=== PATIENT | female | born 1945 | race Caucasian/White ===

== ENCOUNTER 2019-02-04 11:18 | Inpatient (IN) | payer MEDICARE, OTHER ==
[~2019-02-04] VITALS: Ht 162.6 cm; Wt 80.3 kg
[2019-02-04 12:01] VITALS: BP 122/68
--- NOTE | 2019-02-04 12:07 | NUR ---
PT BACK TO ED AT THIS TIME FOLLOWING ORDERED CT SCAN, TRANSPORTED VIA STRETCHER. SIDE RAILS RAISED X2, CALL LIGHT IN REACH, WILL CONTINUE TO MONITOR.
[2019-02-04 12:21] LABS: BASOPHILS 0.6 % (0-2); EOSINOPHILS 2.8 % (0-7); HEMATOCRIT 39.5 % (36.0-48.0); HEMOGLOBIN 12.8 g/dL (12-16); IMMATURE GRANULOCYTES 0.3 % (0-5); LYMPHOCYTES 34.2 % (15-50); MCH 32.6 pg (26.0-34.0); MCHC 32.4 g/dL (31.0-37.0); MCV 100.5 fL (80.0-100.0); MEAN PLATELET VOLUME 10.1 fL (7.4-10.4); MONOCYTES 5.5 % (2-11); NEUTROPHILS 56.6 % (40-80); PLATELET COUNT 219 10x3/uL (130-400); RBC 3.93 10x6/uL (4.00-5.40); WBC 6.9 10x3/uL (4.8-10.8)
[2019-02-04 12:31] LABS: APTT 32.3 SECONDS (22.8-39.4); INR 1.08 (0.85-1.17); PROTIME 13.5 SECONDS (11.6-15.0)
[2019-02-04 12:36] LABS: ALBUMIN 3.8 g/dL (3.4-5.0); ALKALINE PHOSPHATASE 80 U/L (46-116); ALT (SGPT) 9 U/L (10-68); BILIRUBIN - TOTAL 0.27 mg/dL (0.2-1.3); CALC OSMOLALITY 284 mosm/kg (275-300); CALCIUM 8.7 mg/dL (8.5-10.1); CARBON DIOXIDE 28.7 mmol/L (21.0-32.0); CHLORIDE - SERUM 103 mmol/L (98-107); CREATININE - SERUM 0.8 mg/dL (0.6-1.3); GLUCOSE 112 mg/dL (74-106); POTASSIUM - SERUM 3.7 mmol/L (3.5-5.1); PROTEIN - SERUM 7.3 g/dL (6.4-8.2); SODIUM 141 mmol/L (136-145); UREA NITROGEN 22 mg/dL (7-18); eGFR NON AFRICAN AMERICAN 75 mL/min (90-120)
--- NOTE | 2019-02-04 12:45 | NUR ---
PT CONTINUES TO HAVE PARALYSIS TO RUE AND RLE. NO NEURO CHANGES SINCE FIRST ARRIVAL TO ED. NO SIGNS OF DISTRESS. RESIRATIONS EVEN AND UNLABORED. REPOSITIONED FOR COMFORT. CALL LIGHT IN REACH ON UNAFFECTED SIDE. ER REGISTRATION STAFF MEMBER, ALONG WITH THIS NURSE EXPLAINED TO PT THAT WE NEEDE TO LOOK INSIDE OF HER PURSE FOR INFORMATION. PT NODDED HER HEAD TO INSINUATE UNDERSTANDING. DISCOVERED PAPER INDICATING PT'S PCP. WILL CONTACT [facility] IN ATTEMPT TO GATHER PT INFORMATION.
[2019-02-04 12:49] LABS: CKMB 0.9 U/L (0.0-3.6); CREATINE KINASE 106 UL (21-215); MAGNESIUM - SERUM 2.1 mg/dL (1.8-2.4); THYROID STIMULATING HORMONE 4.24 uIU/mL (0.36-3.74); TROPONIN-I < 0.017 ng/mL (0.000-0.060)
[2019-02-04 13:01] VITALS: BP 120/46
--- NOTE | 2019-02-04 13:31 | NUR ---
SPOKE WITH STAFF MEMBER FROM PT'S PCP CLINIC. REPORTED THAT PT'S PCP IS DR. MORALES. REQUESTED THAT MEDICAL RECORDS BE FAXED TO ED.
[2019-02-04 14:00] VITALS: BP 126/64
[2019-02-04 14:23] LABS: APPEARANCE HAZY (CLEAR); BILIRUBIN NEGATIVE (NEGATIVE); COLOR YELLOW (YELLOW); GLUCOSE NEGATIVE (NEGATIVE); KETONE NEGATIVE (NEGATIVE); NITRITE NEGATIVE (NEGATIVE); PROTEIN NEGATIVE (NEGATIVE); SPECIFIC GRAVITY 1.015 (1.005-1.020); UROBILINOGEN NORMAL (NORMAL)
[2019-02-04 15:42] VITALS: BMI 30.4
--- NOTE | 2019-02-04 15:42 | MORECARE ---
CASE MANAGEMENT DISCHARGE SUMMARY PATIENT: DONNA SIMONS UNIT: [id number] ADM DATE: 02/04/19 AGE: 73 : 46 SEX: F ROOM/BED: D.2225 AUTHOR: CAMRYN ZAMORANO PHYSICIAN: REFERRING PHYSICIAN: ZI AMARO MD DATE OF SERVICE: 02/04/19 Discharge Plan Patient Name: DONNA SIMONS [facility] [facility] 1945 Planned Disposition: Anticipated Discharge Date: Discharge Date: Expected LOS: Initial Reviewer: [email or web address] Initial Review Date: 02/04/2019 Generated: 02/04/19 4:42 pm DCP- Discharge Planning Updated by [id number]: Rosaline Velázquez on 02/04/19 2:[address] DC PLAN: UNSURE AT THIS TIME. DC NEEDS: REHAB CM attempted to complete initial dc planning assessment. Patient was found on the floor at home by her . Her last well known time was 2199. Patient not able to verbally communicate but is able to to shake her head yes/no. She is from home wthi her but he is not here and did not answer the numbers listed on the facesheet cm called. CM will continue to follow and will assist as needed with dc plans/needs. Rosaline Velázquez RN, [facility] Patient Name: DONNA SIMONS Page [id number] at 1542 All edits/amendments must be made on the electronic document DICTATION DATE: 02/04/19 1542 MEDICAL RECORDS ASSISTANT: JESSIKA 02/04/19 1542 RPT#: [id number] DC DATE: STATUS: ADM IN [facility] [address] [place] [address] END OF REPORT
[2019-02-04] MEDS ORDERED: BAYER CHEWABLE81 MG PO (15:52)
[2019-02-04] MEDS ORDERED: LIPITOR10 MG (15:53)
[2019-02-04] MEDS ORDERED: SINEMET CR 50-1 EACH (15:54)
[2019-02-04] MEDS ORDERED: LASIX40 MG PO (15:55)
[2019-02-04] MEDS ORDERED: CENTRUM SILVER1 EAC3 (15:55)
[2019-02-04] MEDS ORDERED: CO Q-10200 MG PO (15:55)
[2019-02-04] MEDS ORDERED: MOBIC7.5 MG PO (15:56)
[2019-02-04] MEDS ORDERED: PROVIGIL200 MG PO (15:56)
[2019-02-04] MEDS ORDERED: OSTEO BI-FLEX1 EAC1 PO (15:57)
[2019-02-04] MEDS ORDERED: NYSTATIN1 PWD TOPICAL (15:57)
[2019-02-04] MEDS ORDERED: OMEGA-3100 MG PO (15:57)
[2019-02-04] MEDS ORDERED: POTASSIUM99 M1 PO (15:58)
[2019-02-04] MEDS ORDERED: MYSOLINE250 MG PO (15:59)
[2019-02-04] MEDS ORDERED: MYSOLINE 50 MG50 MG PO (15:59)
[2019-02-04] MEDS ORDERED: PROPRANOLOL HCL20 MG PO (15:59)
[2019-02-04] MEDS ORDERED: ZANAFLEX2 M1 PO (16:00)
[2019-02-04] MEDS ORDERED: SYNTHROID50 MCG PO (16:00)
[2019-02-04] MEDS ORDERED: TOPAMAX50 MG PO ×2 (16:01)
[2019-02-04] MEDS ORDERED: TOPAMAX100 MG PO (16:01)
[2019-02-04] MEDS ORDERED: EFFEXOR75 MG PO (16:02)
[2019-02-04] MEDS ORDERED: ULTRAM50 MG PO (16:02)
[2019-02-04] MEDS ORDERED: VITAMIN B-6100 MG PO (16:03)
[2019-02-04] MEDS ORDERED: VITAMIN B-122500 MCG PO (16:03)
[2019-02-04] MEDS ORDERED: ASCORBIC ACID500 MG PO (16:04)
[2019-02-04 16:10] LABS: CHOL - HDL RATIO 3.9 ratio (2.3-4.1); LDL-HDL RATIO 2.4 ratio (1.5-3.5)
[2019-02-04 17:07] VITALS: BP 153/69
[2019-02-04 18:50] LABS: CKMB 0.9 U/L (0.0-3.6); CREATINE KINASE 143 UL (21-215)
--- NOTE | 2019-02-04 19:00 | NUR ---
BEDSIDE REPORT RECEIVED AND CARE OF PT ASSUMED. PT LYING IN SUPINE POSITION WITH EYES CLOSED. ATTEMPTED TO SPEAK...GOT OUT NO WHEN ASKED IF SHE WAS IN PAIN. RIGHT SIDE FLACCID WITH RIGHT FACIAL DROOP. O2 IN USE VIA NC AT 2L. WILL MONITOR FOR NEEDS.
[2019-02-04 20:00] VITALS: BP 134/71
--- NOTE | 2019-02-04 20:30 | NUR ---
PT TURNED ONTO LEFT SIDE PROPPED WITH PILLOWS.
[2019-02-05 04:00] VITALS: BP 130/65
[2019-02-05 06:07] LABS: BASOPHILS 0.3 % (0-2); EOSINOPHILS 1.4 % (0-7); HEMATOCRIT 40.3 % (36.0-48.0); HEMOGLOBIN 13.1 g/dL (12-16); IMMATURE GRANULOCYTES 0.2 % (0-5); LYMPHOCYTES 25.4 % (15-50); MCH 32.8 pg (26.0-34.0); MCHC 32.5 g/dL (31.0-37.0); MCV 100.8 fL (80.0-100.0); MEAN PLATELET VOLUME 10.8 fL (7.4-10.4); MONOCYTES 6.6 % (2-11); NEUTROPHILS 66.1 % (40-80); PLATELET COUNT 226 10x3/uL (130-400); RDW 13.2 % (11.5-14.5)
[2019-02-05 06:17] LABS: WBC 11.7 10x3/uL (4.8-10.8)
[2019-02-05 06:36] LABS: CALC OSMOLALITY 282 mosm/kg (275-300); CALCIUM 8.8 mg/dL (8.5-10.1); CARBON DIOXIDE 26.9 mmol/L (21.0-32.0); CHLORIDE - SERUM 105 mmol/L (98-107); CREATININE - SERUM 0.7 mg/dL (0.6-1.3); GLUCOSE 124 mg/dL (74-106); POTASSIUM - SERUM 3.7 mmol/L (3.5-5.1); SODIUM 141 mmol/L (136-145); eGFR NON AFRICAN AMERICAN 87 mL/min (90-120)
[2019-02-05 06:38] LABS: UREA NITROGEN 15 mg/dL (7-18)
--- NOTE | 2019-02-05 09:39 | NUR ---
ALERT WITH EXPRESSIVE APHASIA NOTED. FLACIDITY NOTED TO RUE AND RLE. WITH CAP REFULL <3. BED ALARM INTACT. IVF INFUSING TO LT. HAND AT PRESCRIBED RATE4 WITH NO S/S OF INFECTION/INFILTRATION. CONTINUED ASSIST WITH MEALS AND PUREED WITH HONEY THICK LIQUIDS.
[2019-02-05 09:47] VITALS: BP 127/61
[2019-02-05 13:06] VITALS: Ht 162.6 cm; Wt 80.3 kg
[2019-02-05 13:39] VITALS: BP 148/73
[2019-02-05 17:00] VITALS: BP 145/69
--- NOTE | 2019-02-05 19:00 | NUR ---
BEDSIDE REPORT RECEIVED AND CARE OF PT ASSUMED. PT LYING IN HIGH BRIDGES'S POSITION. IV TO LEFT HAND PATENT WITH D5LR INFUSING AT 70 ML/HR. TELEMETRY IN PLACE AND READING SR AT THIS ASSESSMENT.
--- NOTE | 2019-02-05 20:05 | NUR ---
HS MEDICATIONS GIVEN. WILL CONTINUE TO MONITOR FOR NEEDS.
[2019-02-05 20:45] VITALS: BP 149/82
--- NOTE | 2019-02-05 22:00 | NUR ---
ASSISTED PT TO USE BEDPAN TO VOID AND HAVE BM. CLEANED PERINEAL AREA AND REPLACED BEDPADS.
--- NOTE | 2019-02-05 22:08 | NUR ---
PT TURNED TO RIGHT SIDE, PROPPED WITH PILLOWS. SCD'S IN PLACE ON BLE.
--- NOTE | 2019-02-06 00:15 | NUR ---
PT ASSISTED TO USE BEDPAN TO VOID. POSITIONED FOR COMFORT.
--- NOTE | 2019-02-06 00:30 | NUR ---
PT TURNED TO SUPINE POSITION WITH PILLOW SUPPORT ON BOTH SIDES FOR ARMS. HOB AT [address] ON BLE. CALL LIGHT WITHIN REACH.
[2019-02-06 00:46] VITALS: BP 149/76
--- NOTE | 2019-02-06 03:30 | NUR ---
PT CHANGED DUE TO INCONTINECE OF BOWEL AND BLADDER. BED PADS AND GOWN CHANGED. PT TURNED TO LEFT SIDE PER TURN SCHEDULE.
--- NOTE | 2019-02-06 04:10 | NUR ---
PT VOMITED 200 ML OF UNDIGESTED PUREED FOOD. PT CLEANED UP AND ALL LINENS AND GOWN CHANGED.
--- NOTE | 2019-02-06 04:26 | NUR ---
GAVE ZOFRAN 4 MG IVP FOR VOMITING. WILL CONTINUE TO MONITOR CLOSELY FOR NEEDS.
[2019-02-06 05:10] VITALS: BP 156/73
[2019-02-06 06:20] LABS: BASOPHILS 0.2 % (0-2); EOSINOPHILS 0.1 % (0-7); HEMATOCRIT 40.1 % (36.0-48.0); HEMOGLOBIN 13.1 g/dL (12-16); IMMATURE GRANULOCYTES 0.2 % (0-5); LYMPHOCYTES 19.6 % (15-50); MCH 32.8 pg (26.0-34.0); MCHC 32.7 g/dL (31.0-37.0); MCV 100.5 fL (80.0-100.0); MEAN PLATELET VOLUME 10.7 fL (7.4-10.4); MONOCYTES 6.9 % (2-11); PLATELET COUNT 229 10x3/uL (130-400); RBC 3.99 10x6/uL (4.00-5.40); RDW 13.1 % (11.5-14.5); WBC 10.7 10x3/uL (4.8-10.8)
[2019-02-06 06:32] LABS: CALC OSMOLALITY 283 mosm/kg (275-300); CALCIUM 8.8 mg/dL (8.5-10.1); CARBON DIOXIDE 25.7 mmol/L (21.0-32.0); CHLORIDE - SERUM 105 mmol/L (98-107); CREATININE - SERUM 0.6 mg/dL (0.6-1.3); GLUCOSE 146 mg/dL (74-106); SODIUM 141 mmol/L (136-145); UREA NITROGEN 13 mg/dL (7-18); eGFR NON AFRICAN AMERICAN > 90 mL/min (90-120)
--- NOTE | 2019-02-06 09:30 | NUR ---
PT AWAKE WITH IMPROVED EXPRESSIVE APASHIA AND COGNITION. PT ABLE TO SPEAK 2-3 WORD PHRASES. LUNGS CTA HRRR WITH TELEMETRY INTACT. INCONTINENT EPISODES AT TIMES. TELEMETRY INTACT. IVF INFUSING AT PRESCRIBED RATE TO LEFT HAND. PT. TRUNED AND REPOSITIONED FOR COMFORT Q 2 HRS.
[2019-02-06 09:36] VITALS: BP 134/61
[2019-02-06 12:34] VITALS: BP 145/75
--- NOTE | 2019-02-06 19:00 | NUR ---
BEDSIDE REPORT RECEIVED AND CARE OF PT ASSUMED. PT LYING IN LOW BRIDGES'S POSITION WITH EYES CLOSED. HEELS BRIDGED. PUREWICK EXTERNAL CATHETER IN USE. RIGHT SIDE REMAINS FLACID. APASIA IMPROVING, WITH PT RESPONDING MORE CLEARLY. WILL MONITOR FOR NEEDS.
[2019-02-06 20:56] VITALS: BP 138/70
[2019-02-07 01:48] VITALS: BP 141/70
[2019-02-07 05:24] VITALS: BP 130/71
[2019-02-07 05:43] LABS: BASOPHILS 0.3 % (0-2); EOSINOPHILS 0.7 % (0-7); HEMATOCRIT 39.8 % (36.0-48.0); HEMOGLOBIN 12.8 g/dL (12-16); IMMATURE GRANULOCYTES 0.2 % (0-5); LYMPHOCYTES 24.5 % (15-50); MCH 32.7 pg (26.0-34.0); MCHC 32.2 g/dL (31.0-37.0); MCV 101.5 fL (80.0-100.0); MEAN PLATELET VOLUME 10.7 fL (7.4-10.4); MONOCYTES 9.2 % (2-11); NEUTROPHILS 65.1 % (40-80); PLATELET COUNT 227 10x3/uL (130-400); RBC 3.92 10x6/uL (4.00-5.40); RDW 13.4 % (11.5-14.5); WBC 11.8 10x3/uL (4.8-10.8)
[2019-02-07 06:02] LABS: CALC OSMOLALITY 293 mosm/kg (275-300); CALCIUM 8.2 mg/dL (8.5-10.1); CARBON DIOXIDE 29.7 mmol/L (21.0-32.0); CHLORIDE - SERUM 109 mmol/L (98-107); CREATININE - SERUM 0.6 mg/dL (0.6-1.3); GLUCOSE 128 mg/dL (74-106); POTASSIUM - SERUM 3.8 mmol/L (3.5-5.1); SODIUM 146 mmol/L (136-145); UREA NITROGEN 14 mg/dL (7-18); eGFR NON AFRICAN AMERICAN > 90 mL/min (90-120)
--- NOTE | 2019-02-07 09:22 | NUR ---
FED PT BREAKFAST AND PT TOLERATED WELL, NO S/S OF DISTRESS, CONTINUE WITH PLAN OF CARE
--- NOTE | 2019-02-07 12:00 | NUR ---
PT IS WITHOUT DISTRESS.CALL LIGHT IN REACH
--- NOTE | 2019-02-07 14:34 | EC ---
PATIENT:DONNA SIMONS DATE OF SERVICE: 02/04/19 SEX: F MEDICAL RECORD: [id number] DATE OF : [birth year] LOCATION:D.MS [address] AGE OF PATIENT: 73 ADMISSION DATE: 02/04/19 REFERRING PHYSICIAN: INTERPRETING PHYSICIAN: KARLY ANDREA MD ECHOCARDIOGRAM REPORT ECHO CHARGES 4 ECHO COMPLETE Date: 02/05/19 CLINICAL DIAGNOSIS: CVA ECHOCARDIOGRAPHIC MEASUREMENTS (adult normal given) AC root (d.<3.7cm) 3.6 cm LV Septum d (<1.2 cm> 1.2 cm Valve Excursion 2.2 cm LV Septum (systole) 1.6 cm Left Atria (s.<4.0cm> 3.9 cm LVPW d(<1.2cm) 1.4 cm RV (d.<2.3cm) 3.6 cm LVPW (sytole) 1.6 cm LV diastole(<5.6CM) 4.7 cm MV E-F(>70mm/sec) cm LV systole 2.8 cm LVOT Diameter 1.9 cm MV exc.(>10mm) 1.4 cm Est.ejection fraction (50-75%) % DOPPLER: LVIT cm/sec A 84.0 cm/sec E 53.0 cm/sec LA cm/sec RVSP 17 mmHg LVOT 85 cm/sec AOP1/2T m/s Asc. Ao 105 cm/sec RVOT 75 cm/sec RA cm/sec PA 104 cm/sec AV Gradient Peak 4.42 mmHg AV Mean 2.09 mmHg AV Area 2.6 cm MV Gradient Peak 3.68 mmHg MV Mean 1.17 mmHg MV Area cm COMMENTS: Reconnaissance Man: Elvin TOMAS Mail Room: Leonel Andrea TAPE# PACS Pericardial Effusion N DATE OF SERVICE: 02/05/2019 PROCEDURE: Echocardiogram. FINDINGS: 1. Left ventricular chamber size is within normal limits. Left ventricular systolic function is normal. Overall ejection fraction estimated at 60% to 65%. 2. Left atrium is within normal limits at 3.9 cm. Right atrium and right ventricular chamber sizes are mildly dilated. 3. Valvular structures have normal structure and motion. ECHOCARDIOGRAM REPORT [id number] DONNA SIMONS 4. Doppler interrogation reveals etknu-go-udnb aortic insufficiency, fqyrv-xl-jvyr mitral regurgitation, pgttr-tv-csfo tricuspid regurgitation, no other valvular insufficiency or stenosis. Pulmonary systolic pressure is normal estimated at 17 mmHg. 5. No evidence of pericardial effusion or left ventricular thrombus. TRANSINT:[id number] Voice Confirmation ID: [id number] DOCUMENT ID: [id number] KARLY ANDREA MD at 1434 CC: [id number] DICTATION DATE: 02/06/19 1240 [place] FORMER: 02/06/19 1259 [place] [address]
--- NOTE | 2019-02-07 15:34 | MORECARE ---
CASE MANAGEMENT DISCHARGE SUMMARY PATIENT: DONNA SIMONS UNIT: [id number] ADM DATE: 02/04/19 AGE: 73 : [birth year] SEX: F ROOM/BED: D.2225 AUTHOR: CAMRYN ZAMORANO PHYSICIAN: REFERRING PHYSICIAN: ZI AMARO MD DATE OF SERVICE: 02/07/19 Discharge Plan Patient Name: DONNA SIMONS Facility: [facility]:[place] : 1945 Planned Disposition: Anticipated Discharge Date: Discharge Date: Expected LOS: Initial Reviewer: [email or web address] Initial Review Date: 02/04/2019 Generated: 02/07/19 4:34 pm Comments DCP- Discharge Planning Updated by [id number]: Tori Schmidt on 02/07/19 2:[address] I called [phone] and [phone] to reach patient's without success, I did leave my name and number to return my call concerning discharge I attempted to call Radha or Neri as listed on her admin data screen with no answer. I will continue to assist with discharge planning/needs and try again to reach her via phone. DCP- Discharge Planning Updated by [id number]: Rosaline Velázquez on 02/04/19 2:[address] DC PLAN: UNSURE AT THIS TIME. DC NEEDS: REHAB CM attempted to complete initial dc planning assessment. Patient was found on the floor at home by her . Her last well known time was 2200. Patient not able to verbally communicate but is able to to shake her head yes/no. She is from home wthi her but he is not here and did not answer the numbers listed on the facesheet cm called. CM will continue to follow and will assist as needed with dc plans/needs. Rosaline Velázquez RN, [facility] Last DP export: 02/04/19 2:42 p Patient Name: DONNA SIMONS Page [id number] at 1534 All edits/amendments must be made on the electronic document DICTATION DATE: 02/07/19 1533 ADVERTISING SALES EXECUTIVE: JESSIKA 02/07/19 153 RPT#: [id number] DC DATE: STATUS: ADM IN [facility] [address] [place] [address] END OF REPORT
[2019-02-07 15:55] VITALS: BP 177/76
--- NOTE | 2019-02-07 20:00 | NUR ---
ASSESSMENT PER FLOWSHEET. UPON ROUNDS WITH AM NURSE IT WAS NOTED THAT PATIENT WAS INC. OF STOOL AND ALSO HAD STOOL ON HER HANDS. NURSE STATED CNAS HAD JUST CLEANED HER UP. DAUGHTER CAME INTO ROOM AND PM [employer] IC LAYOUT DESIGNER WAS CLEANING HER UP. SR UP X2 CALL LIGHT WITHIN REACH. GABRIELA MAT TO BED.
--- NOTE | 2019-02-07 20:30 | NUR ---
IV PATENT LEFT HAND OF D5LR AT 70CC'S/HR SITE CLEAR. O2 ON 3L/M PER NC. RT SIDE FLACCID. LEFT FACIAL WEAKNESS. TELM. SHOWS SR WITH HR 67. SCD'S ON. SPEECH SLURRED.
--- NOTE | 2019-02-07 22:00 | NUR ---
EYES CLOSED ESPIRATIONS WITH EASE AND UNLABORED.
[2019-02-07 22:28] VITALS: BP 135/70
[2019-02-08] VITALS: BP 139/64
--- NOTE | 2019-02-08 01:22 | NUR ---
RESTING QUIETLY NO CHAGES IN ASSESSMENT. REPOSITIONED IN BED.
[2019-02-08 06:07] LABS: BASOPHILS 0.3 % (0-2); EOSINOPHILS 3.1 % (0-7); HEMATOCRIT 39.6 % (36.0-48.0); HEMOGLOBIN 12.8 g/dL (12-16); IMMATURE GRANULOCYTES 0.2 % (0-5); MCH 32.9 pg (26.0-34.0); MCHC 32.3 g/dL (31.0-37.0); MCV 101.8 fL (80.0-100.0); MEAN PLATELET VOLUME 10.5 fL (7.4-10.4); MONOCYTES 9.2 % (2-11); NEUTROPHILS 62.2 % (40-80); PLATELET COUNT 215 10x3/uL (130-400); RBC 3.89 10x6/uL (4.00-5.40); RDW 13.4 % (11.5-14.5); WBC 10.3 10x3/uL (4.8-10.8)
[2019-02-08 06:13] VITALS: BP 122/82
[2019-02-08 06:20] LABS: CALC OSMOLALITY 291 mosm/kg (275-300); CALCIUM 8.9 mg/dL (8.5-10.1); CARBON DIOXIDE 30.6 mmol/L (21.0-32.0); CHLORIDE - SERUM 106 mmol/L (98-107); CREATININE - SERUM 0.5 mg/dL (0.6-1.3); GLUCOSE 117 mg/dL (74-106); POTASSIUM - SERUM 3.6 mmol/L (3.5-5.1); SODIUM 145 mmol/L (136-145); UREA NITROGEN 17 mg/dL (7-18); eGFR NON AFRICAN AMERICAN > 90 mL/min (90-120)
[2019-02-08 08:47] VITALS: BP 120/62
--- NOTE | 2019-02-08 11:19 | NUR ---
PATIENT RECIEVED THIS AM WITH EYES CLOSED IN SNORING SLEEP. WAS ABLE TO AWAKEN ENOUGH TO EAT SMALL AMOUNT OF BREAKFAST. PATIENT IS DIFFICULT TO AROUSE AT THIS TIME. ELLIE BROWN SUPERVISOR FEED MILL IN ROOM AT THIS TIME
[2019-02-08 12:36] VITALS: BP 123/62
--- NOTE | 2019-02-08 13:14 | MORECARE ---
CASE MANAGEMENT DISCHARGE SUMMARY PATIENT: DONNA SIMONS UNIT: [id number] ADM DATE: 02/04/19 AGE: 73 : 47 SEX: F ROOM/BED: D.2225 AUTHOR: LONADOC PHYSICIAN: REFERRING PHYSICIAN: ZI AMARO MD DATE OF SERVICE: 02/08/19 Discharge Plan Patient Name: DONNA SIMONS Facility: [facility]:[place] : 1945 Planned Disposition: Inpatient Rehab Anticipated Discharge Date: Discharge Date: Expected LOS: Initial Reviewer: [email or web address] Initial Review Date: 02/04/2019 Generated: 02/08/19 2:14 pm Comments DCP- Discharge Planning Updated by [email or web address]: Tori Schmidt on 02/08/19 12:[address] I was able to get ahold of patient's daughter (Elise), her number is [phone]. She states that she would like her mother to go to inpatient rehab prior to returning home. I informed her that she is unstable at this time and the physician would like to know her code status. Elise states that they have talked about it before, and would like her mother to be a full code. She states she wants everything done. She states she can be here after work today. Elise states her mother was independent prior to admission and caring for her . States her mother still is working at the [employer]. CM will continue to follow and assist with discharge planning/needs. DCP- Discharge Planning Updated by [email or web address]: Tori Schmidt on 02/07/19 2:[address] I called [phone] and [phone] to reach patient's without success, I did leave my name and number to return my call concerning discharge I attempted to call Radha or Neri as listed on her admin data screen with no answer. I will continue to assist with discharge planning/needs and try again to reach her via phone. DCP- Discharge Planning Updated by [email or web address]: Rosaline Velázquez on 02/04/19 2:[address] DC PLAN: UNSURE AT THIS TIME. DC NEEDS: REHAB CM attempted to complete initial dc planning assessment. Patient was found on the floor at home by her . Her last well known time was 2200. Patient not able to verbally communicate but is able to to shake her head yes/no. She is from home wthi her but he is not here and did not answer the numbers listed on the facesheet cm called. CM will continue to follow and will assist as needed with dc plans/needs. Rosaline Velázquez RN, [facility] Last DP export: 02/07/19 2:34 p Patient Name: DONNA SIMONS Page [id number] at 1314 All edits/amendments must be made on the electronic document DICTATION DATE: 02/08/19 131 BONDING MACHINE TENDER: JESSIKA 02/08/19 1314 RPT#: [id number] DC DATE: STATUS: ADM IN [facility] [address] [place] [address] END OF REPORT
--- NOTE | 2019-02-08 15:23 | NUR ---
OT NOTE: IN AM, PT VERY LETHARGIC.. MUCH LESS RESPONSIVE THAN YESTERDAY. PT WOULD INITIALLY OPEN EYES WITH VERBAL STIMULI, BUT IMMEDIATELY CLOSED THEM. UNABLE TO STAY AWAKE. INITIALLY UNABLE TO TURN HEAD IN RESPONSE TO VERBAL STIM, BUT LATER ABLE TO DO SO. UNABLE TO STAY AWAKE TO BE FED. INFORMED MATIAS WHO ORDERED SOME TESTS TO BE PERFORMED. PT WAS SEEN IN PM AND WAS DOING MUCH BETTER. COMPLETELY ALERT AND AWAKE. SHE WAS VERBALIZING THIS AFTERNOON.. (SPEECH WAS NOT GARBLED THIS AFTERNOON) PT WAS ASKED HER NAME AND RESPONDED WITH, " I DONT KNOW".. PT WAS ABLE TO PERFORM SIMPLE COMMANDS BUT WITH VERY UNCOORDINATED MOVEMENT IN L SIDE. ABLE TO COUNT TO 5.. MUCH IMPROVED FROM THIS MORNING AND YESTERDAY. KACIE CASTILLO, OTR/L
[2019-02-08 16:33] VITALS: BP 106/49
--- NOTE | 2019-02-08 20:00 | NUR ---
ASSESSMENT PER FLOWSHEET. IV PATENT RT WRIST WITH D5LR AT 70CC'S/HR. GABRIELA MAT TO BED SR UP X2 CALL LIGHT WITHIN REACH.PURLEX DEVICE TO URETHRA. BRENT COLORED URINE NOTIED IN CANNISTER.
--- NOTE | 2019-02-08 20:15 | NUR ---
TO MRI DEPT PER CART FOR MRI OF THE BRAIN.
--- NOTE | 2019-02-08 20:45 | NUR ---
RETURNED TO ROOM
--- NOTE | 2019-02-08 22:00 | NUR ---
INC URINE COMPLETE BED BATH WITH LINENS CHANGED.
[2019-02-08 22:21] VITALS: BP 134/59
--- NOTE | 2019-02-09 | NUR ---
EYES CLOSED RESPIRAQTIONS WITH EASE AND UNLABORED. O2 ON 3L/M PER NC.
[2019-02-09 01:02] VITALS: BP 108/58; BP 141/66
[2019-02-09 04:58] VITALS: BP 134/60
[2019-02-09 06:43] LABS: BASOPHILS 0.3 % (0-2); EOSINOPHILS 4.2 % (0-7); HEMOGLOBIN 12.2 g/dL (12-16); IMMATURE GRANULOCYTES 0.1 % (0-5); MCH 32.4 pg (26.0-34.0); MCHC 32.1 g/dL (31.0-37.0); MCV 101.1 fL (80.0-100.0); MEAN PLATELET VOLUME 10.5 fL (7.4-10.4); MONOCYTES 6.9 % (2-11); NEUTROPHILS 66.5 % (40-80); PLATELET COUNT 208 10x3/uL (130-400); RBC 3.76 10x6/uL (4.00-5.40); RDW 13.1 % (11.5-14.5); WBC 11.1 10x3/uL (4.8-10.8)
[2019-02-09 06:45] LABS: CALC OSMOLALITY 288 mosm/kg (275-300); CALCIUM 8.6 mg/dL (8.5-10.1); CARBON DIOXIDE 29.6 mmol/L (21.0-32.0); CHLORIDE - SERUM 107 mmol/L (98-107); CREATININE - SERUM 0.6 mg/dL (0.6-1.3); GLUCOSE 118 mg/dL (74-106); POTASSIUM - SERUM 3.5 mmol/L (3.5-5.1); SODIUM 144 mmol/L (136-145); UREA NITROGEN 16 mg/dL (7-18); eGFR NON AFRICAN AMERICAN > 90 mL/min (90-120)
[2019-02-09 09:03] VITALS: BP 130/63
--- NOTE | 2019-02-09 11:30 | NUR ---
PT RESTING IN BED. NO SIGNS OF DISTRESS. IV TO RIGHT WRIST PATENT NO REDNESS OR TENDERNESS. PERWICK IN PLACE. ALL FALL PRECAUTIONS IN PLACE. DENIES ANY FURTHER NEED AT THIS TIME. CALL LIGHT IN REACH. BED LOW POSITION. NO FAMILY AT BEDSIDE AT THIS TIME.
[2019-02-09 12:56] VITALS: BP 125/64
--- NOTE | 2019-02-09 14:20 | NUR ---
Nutrition Follow-up: No family at BS. Pt's nurse reports that pt eats ~50% of meal and then starts coughing; coughing not noted any other time. Being seen by ST who continue to rec puree with honey thick liquid with 1:1 feedings. Diet: Regular, Puree with Honey Thick Liquids No new wt Last BM: 02/08 Labs reviewed Meds reviewed -Continue current diet with consistencies per ST. -Trial Ensure; will send with dinner daniel. -RD following.
--- NOTE | 2019-02-09 15:53 | NUR ---
OT NOTE: PT LETHARGIC AGAIN IN AM, HOWEVER, MORE EASILY AROUSABLE TODAY. PRACTICED BED MOB AND PT PERFORMED VERY WELL WITH ROLLING, EVEN TO WEAK SIDE. SUPINE TO SIT WITH MAX ASSIST. MOD ASSIST WITH STATIC SITTING BALANCE. ATTEMPTED COGNITIVE ACT INCLUDING STATING NAME, FAMILY NAME, ETC.. ALL RESPONSES WERE, "I DONT KNOW". ABLE TO COUNT TO 5 WITH THERAPIST, BUT THEN VERBALIZATION BECAME MORE GARBLED. DIFFICULTY WITH IDENTIFYING COLORS. R SIDE REMAINS FLACID. KACIE CASTILLO, OTR/L
[2019-02-09 16:33] VITALS: BP 116/62
--- NOTE | 2019-02-09 17:37 | NUR ---
OT NOTE: PT COMPLETED SIDE ROLLING TASK WITH MIN A. PT COMPLETED SUPINE TO SIT WITH MAX A. PT COMPLETED FACE WASH AND HAND WASH WITH MIN/MOD A. PT LETHARGIC AND REQUIRED CUES FOR PARTICIPATION. PT IS COOPERATIVE. THANK YOU, NANCI LOVE
--- NOTE | 2019-02-09 18:40 | NUR ---
I have reviewed this patient and I concur with the Shift Assessment completed by the Licensed Practical Nurse today this shift.
[2019-02-09 20:00] VITALS: BP 159/60
[2019-02-10] VITALS: BP 130/63
[2019-02-10 04:00] VITALS: BP 128/59
[2019-02-10 06:05] LABS: BASOPHILS 0.5 % (0-2); HEMATOCRIT 36.6 % (36.0-48.0); HEMOGLOBIN 11.6 g/dL (12-16); IMMATURE GRANULOCYTES 0.1 % (0-5); LYMPHOCYTES 31.5 % (15-50); MCH 32.3 pg (26.0-34.0); MCHC 31.7 g/dL (31.0-37.0); MCV 101.9 fL (80.0-100.0); MEAN PLATELET VOLUME 10.5 fL (7.4-10.4); MONOCYTES 9.8 % (2-11); NEUTROPHILS 52.1 % (40-80); PLATELET COUNT 214 10x3/uL (130-400); RBC 3.59 10x6/uL (4.00-5.40); RDW 13.1 % (11.5-14.5)
[2019-02-10 06:29] LABS: WBC 7.5 10x3/uL (4.8-10.8)
[2019-02-10 06:34] LABS: ALKALINE PHOSPHATASE 100 U/L (46-116); ALT (SGPT) 126 U/L (10-68); BILIRUBIN - TOTAL 0.35 mg/dL (0.2-1.3); CALC OSMOLALITY 296 mosm/kg (275-300); CALCIUM 8.7 mg/dL (8.5-10.1); CARBON DIOXIDE 30.6 mmol/L (21.0-32.0); CHLORIDE - SERUM 109 mmol/L (98-107); CREATININE - SERUM 0.5 mg/dL (0.6-1.3); GLUCOSE 109 mg/dL (74-106); POTASSIUM - SERUM 3.7 mmol/L (3.5-5.1); PROTEIN - SERUM 6.1 g/dL (6.4-8.2); SODIUM 148 mmol/L (136-145); UREA NITROGEN 17 mg/dL (7-18); eGFR NON AFRICAN AMERICAN > 90 mL/min (90-120)
--- NOTE | 2019-02-10 07:20 | NUR ---
CONFUSED AT TIMES, SPEECH SLURRED. RESTING IN BED EYES OPEN. NO C/O PAIN. NO S/S OF ACUTE DISTRESS NOTED. RIGHT ARM FLACCID, RIGHT LEG MODERATE WEAKNESS. BED ALARM ON. ON 2L O2, NC. IV TO RIGHT WRIST, D5 1/2 NS INFUSING @ 125ML/HR. SITE PATENT WITHOUT REDNESS OR SWELLING. ON TELEMETRY SR 70. PT DENIES ANY NEEDS AT THIS TIME. CALL LIGHT IN REACH. WILL CONTINUE TO MONITOR.
[2019-02-10 09:13] VITALS: BP 113/65
[2019-02-10 12:04] VITALS: BP 117/60
--- NOTE | 2019-02-10 12:36 | NUR ---
OT NOTE: PT DOING BETTER TODAY. PRACTICED BED MOB INCLUDING ROLLING SIDE TO SIDE; SUPINE TO SIT WITH MOD ASSIST; EXTENSIVE SITTING BALANCE TASKS TO IMPROVE TRUNK STRENGTH. STATIC SITTING BALANCE IS F-..WT BEARING IN R UE/LE TO IMPROVE TONE. PROM TO R SIDE. NO ACTIVE MOVEMENT AT THIS TIME. REACHING ACT WITH L UE FOR TRUNK CONTROL TRAINING. PT ABLE TO RIGHT SELF APPROX 75% OF TIME WITHOUT CUES. COGNITIVE TRAINING ACT WITH APPROX 20% ACCURACY TO INCLUDE COUNTING, NAMING COLORS, NAMING PEOPLE, ORIENTATION QUESTIONS, ETC..PT MORE ALERT AND WORDS ARE MORE INTELLIGABLE TODAY. KACIE CASTILLO, OTR/L
--- NOTE | 2019-02-10 14:24 | NUR ---
I have reviewed this patient and I concur with the Shift Assessment completed by the Licensed Practical Nurse today this shift.
[2019-02-10 17:07] VITALS: BP 126/64
--- NOTE | 2019-02-10 18:45 | NUR ---
RESTING IN BED, EYES OPEN. NO C/O PAIN. NO S/S OF ACUTE DISTRESS NOTED. PT DENIES ANY NEEDS AT THIS TIME. CALL LIGHT IN REACH. WILL CONTINUE TO MONITOR.
--- NOTE | 2019-02-10 19:00 | NUR ---
BEDSIDE REPORT RECEIVED AND CARE OF PT ASSUMED. PT LYING IN MID BRIDGES'S POSITION WITH EYES CLOSED. IV TO RIGHT WRIST PATENT WITH D51/2 NS INFUSING AT 125 ML/HR. TELEMETRY IN PLACE AND READING SR AT THIS ASSESSMENT. PT WITH MARKED RIGHT SIDE WEAKNESS / FLACID. SCD'S IN USE ON BLE. BEIDGED HEELS AND TURNED PT TO RIGHT SIDE PROPPED WITH 2 PILLOWS.
[2019-02-10 20:00] VITALS: BP 122/58
--- NOTE | 2019-02-10 21:09 | NUR ---
HS MEDICATIONS GIVEN WITH SIPS OF THICKENED WATER.
--- NOTE | 2019-02-10 22:05 | NUR ---
PT BATHED AND ALL LINENS AND GOWN CHANGED DUE TO INCONTINENCE OF BOWEL AND BLADDER. PUREWICK EXTERNAL CATHETER PLACED PER PT REQUEST.
[2019-02-11 06:24] LABS: BASOPHILS 0.8 % (0-2); EOSINOPHILS 7.6 % (0-7); HEMATOCRIT 36.4 % (36.0-48.0); HEMOGLOBIN 11.8 g/dL (12-16); IMMATURE GRANULOCYTES 0.2 % (0-5); LYMPHOCYTES 36.7 % (15-50); MCH 33.1 pg (26.0-34.0); MCHC 32.4 g/dL (31.0-37.0); MEAN PLATELET VOLUME 10.2 fL (7.4-10.4); MONOCYTES 9.7 % (2-11); PLATELET COUNT 212 10x3/uL (130-400); RBC 3.57 10x6/uL (4.00-5.40); WBC 6.5 10x3/uL (4.8-10.8)
[2019-02-11 06:26] VITALS: BP 138/65
[2019-02-11 06:32] LABS: ALBUMIN 2.9 g/dL (3.4-5.0); ALKALINE PHOSPHATASE 94 U/L (46-116); ALT (SGPT) 101 U/L (10-68); BILIRUBIN - TOTAL 0.34 mg/dL (0.2-1.3); CALCIUM 8.5 mg/dL (8.5-10.1); CARBON DIOXIDE 29.4 mmol/L (21.0-32.0); CHLORIDE - SERUM 107 mmol/L (98-107); CREATININE - SERUM 0.6 mg/dL (0.6-1.3); GLUCOSE 121 mg/dL (74-106); POTASSIUM - SERUM 3.7 mmol/L (3.5-5.1); SODIUM 145 mmol/L (136-145); eGFR NON AFRICAN AMERICAN > 90 mL/min (90-120)
[2019-02-11 06:33] LABS: CALC OSMOLALITY 288 mosm/kg (275-300); UREA NITROGEN 10 mg/dL (7-18)
[2019-02-11 08:44] VITALS: BP 134/62
--- NOTE | 2019-02-11 09:00 | NUR ---
AWAKE WITH EXPRESSIVE APHASIA NOTED. LUNGS CTA. HRRR WITH TELEMETRY SR 67. NO PERIPHERAL EDEMA NOTED. RIGHT HEMIPARALYSIS NOTED. FALL PRECAUTIONS IN PLACE. IVF INFUSING TO RT. WRIST WITH O S/S OF INFECTION/INFILTRATION. SCD'S INTACT WITH O2 2L N/C.
[2019-02-11] MEDS ORDERED: ASPIRIN300 MG RC (10:34)
[2019-02-11] MEDS ORDERED: LOVASTATIN20 MG PO (10:34)
[2019-02-11] MEDS ORDERED: PROTONIX40 MG PO (10:35)
--- NOTE | 2019-02-11 11:10 | MORECARE ---
CASE MANAGEMENT DISCHARGE SUMMARY PATIENT: DONNA SIMONS UNIT: [id number] ADM DATE: 02/04/19 AGE: 73 : 46 SEX: F ROOM/BED: D.2225 AUTHOR: LONADOC PHYSICIAN: REFERRING PHYSICIAN: ZI AMARO MD DATE OF SERVICE: 02/11/19 Discharge Plan Patient Name: DONNA SIMONS Facility: [facility]:[place] : 1945 Planned Disposition: Inpatient Rehab Anticipated Discharge Date: Discharge Date: Expected LOS: Initial Reviewer: [email or web address] Initial Review Date: 02/04/2019 Generated: 02/11/19 12:10 pm Comments DCP- Discharge Planning Updated by [id number]: Tori Schmidt on 02/11/19 10:[address] Patient Name: DONNA SIMONS Encounter No: [id number] : 1945 Primary Insurance: MEDICARE A & B Anticipated DC Date: Planned Disposition: Inpatient Rehab External Planned Provider: : DCP follow-up note: Patient and family in agreement with discharge plan. No changes to plan. I spoke with her daughter, Radha, and she agrees with discharge to inpatient rehab. IMM explained to her and will be mailed, voiced understanding. Case management will follow and assist as needed. Tori Brayan DCP- Discharge Planning Updated by [email or web address]: Tori Schmidt on 02/08/19 12:[address] I was able to get ahold of patient's daughter (Elise), her number is [phone]. She states that she would like her mother to go to inpatient rehab prior to returning home. I informed her that she is unstable at this time and the physician would like to know her code status. Elise states that they have talked about it before, and would like her mother to be a full code. She states she wants everything done. She states she can be here after work today. Elise states her mother was independent prior to admission and caring for her . States her mother still is working at the [employer]. CM will continue to follow and assist with discharge planning/needs. DCP- Discharge Planning Updated by [id number]: Tori Schmidt on 02/07/19 2:[address] I called [phone] and [phone] to reach patient's without success, I did leave my name and number to return my call concerning discharge I attempted to call Radha or Neri as listed on her admin data screen with no answer. I will continue to assist with discharge planning/needs and try again to reach her via phone. DCP- Discharge Planning Updated by [id number]: Rosaline Velázquez on 02/04/19 2:[address] DC PLAN: UNSURE AT THIS TIME. DC NEEDS: REHAB CM attempted to complete initial dc planning assessment. Patient was found on the floor at home by her . Her last well known time was 0. Patient not able to verbally communicate but is able to to shake her head yes/no. She is from home wthi her but he is not here and did not answer the numbers listed on the facesheet cm called. CM will continue to follow and will assist as needed with dc plans/needs. Rosaline Velázquez RN, CCM Coverage Notice Reviewer: [id number] - Tori Schmidt Notice Issued Date-Time: 02/11/2019 10:45 Notice Type: IM Discharge Notice Notice Delivered To: Family Member Relationship to Patient: Daughter Automatic Toe Laster Name: Radha Spencer Delivery Method: PHONE - Phone Becki Days: Prior Verbal Notification: Recipient Understood Notice: Yes Recipient Signature: Med Rec Note Co-signed by Attending: Coverage Notice Comment: IMM explained over the phone and will be mailed certified mail to [address] [place] [address], [id number] Last DP export: 02/08/19 12:14 p Patient Name: DONNA SIMONS Page [id number] at 1110 All edits/amendments must be made on the electronic document DICTATION DATE: 02/11/191108 CALL PERSON: JESSIKA 02/11/191108 RPT#: [id number] DC DATE: STATUS: ADM IN [facility] [address] [place] [address] END OF REPORT
[2019-02-11 14:09] VITALS: BP 139/70
--- NOTE | 2019-02-11 15:50 | NUR ---
[facility] TO TO MARIA MARIN. IV DISCONTINUED AND STABLE AT TIME OF DISCHARGE.
--- NOTE | 2019-02-15 07:06 | MORECARE ---
CASE MANAGEMENT DISCHARGE SUMMARY PATIENT: DONNA SIMONS UNIT: [id number] ADM DATE: 02/04/19 AGE: 73 : 46 SEX: F ROOM/BED: D.2225 AUTHOR: LONADOC PHYSICIAN: REFERRING PHYSICIAN: ZI AMARO MD DATE OF SERVICE: 02/15/19 Discharge Plan Patient Name: DONNA SIMONS Facility: [facility]:[place] : 1945 Planned Disposition: Inpatient Rehab Anticipated Discharge Date: Discharge Date: 02/11/2019 Expected LOS: 0 Initial Reviewer: [email or web address] Initial Review Date: 02/04/2019 Generated: 02/15/19 8:05 am Comments DCP- Discharge Planning Updated by [email or web address]: Tori Schmidt on 02/11/19 10:[address] Patient Name: DONNA SIMONS Encounter No: [id number] : 1945 Primary Insurance: MEDICARE A & B Anticipated DC Date: Planned Disposition: Inpatient Rehab External Planned Provider: : DCP follow-up note: Patient and family in agreement with discharge plan. No changes to plan. I spoke with her daughter, Radha, and she agrees with discharge to inpatient rehab. IMM explained to her and will be mailed, voiced understanding. Case management will follow and assist as needed. Tori Schmidt DCP- Discharge Planning Updated by [email or web address]: Tori Brayan on 02/08/19 12:[address] I was able to get ahold of patient's daughter (Elise), her number is [phone]. She states that she would like her mother to go to inpatient rehab prior to returning home. I informed her that she is unstable at this time and the physician would like to know her code status. Elise states that they have talked about it before, and would like her mother to be a full code. She states she wants everything done. She states she can be here after work today. Elise states her mother was independent prior to admission and caring for her . States her mother still is working at the [employer]. CM will continue to follow and assist with discharge planning/needs. DCP- Discharge Planning Updated by [id number]: Tori Schmidt on 02/07/19 2:[address] I called [phone] and [phone] to reach patient's without success, I did leave my name and number to return my call concerning discharge I attempted to call Radha or eNri as listed on her admin data screen with no answer. I will continue to assist with discharge planning/needs and try again to reach her via phone. DCP- Discharge Planning Updated by [id number]: Rosaline Velázquez on 02/04/19 2:[address] DC PLAN: UNSURE AT THIS TIME. DC NEEDS: REHAB CM attempted to complete initial dc planning assessment. Patient was found on the floor at home by her . Her last well known time was 2200. Patient not able to verbally communicate but is able to to shake her head yes/no. She is from home wthi her but he is not here and did not answer the numbers listed on the facesheet cm called. CM will continue to follow and will assist as needed with dc plans/needs. Rosaline Velázquez RN, [facility] Coverage Notice Reviewer: [email or web address] - Tori Schmidt Notice Issued Date-Time: 02/11/2019 10:45 Notice Type: IM Discharge Notice Notice Delivered To: Family Member Relationship to Patient: Daughter [employer] Account Assistant Name: Radha Spencer Delivery Method: PHONE - Phone Becki Days: Prior Verbal Notification: Recipient Understood Notice: Yes Recipient Signature: Med Rec Note Co-signed by Attending: Coverage Notice Comment: IMM explained over the phone and will be mailed certified mail to [address] [place] [address], [phone] Last DP export: 02/11/19 10:10 a Patient Name: DONNA SIMONS Page [phone] at 0706 All edits/amendments must be made on the electronic document DICTATION DATE: 02/15/19704 THREAD DRESSER: JESSIKA 02/15/19704 RPT#: [id number] DC DATE:02/11/19 STATUS: DIS IN [facility] [address] [place] [address] END OF REPORT
== END 2019-02-11 15:53 | DRG 64 ==
LOC: D.ER 11:18 → D.MS 14:02
PROVIDERS: Emergency Medicine; Family Medicine; ADMIT Internal Medicine Nephrology; ATTEND Internal Medicine Nephrology
DX: I63.512 Cerebral infarction due to unspecified occlusion or stenosis of left middle cerebral artery (principal); R40.2213 Coma scale, best verbal response, none, at hospital admission; G81.91 Hemiplegia, unspecified affecting right dominant side; E78.5 Hyperlipidemia, unspecified; E03.9 Hypothyroidism, unspecified; G20 Parkinson's disease; F02.80 Dementia in other diseases classified elsewhere, unspecified severity, without behavioral disturbance, psychotic disturbance, mood disturbance, and anxiety; F32.9 Major depressive disorder, single episode, unspecified; R40.2133 Coma scale, eyes open, to sound, at hospital admission; R40.2353 Coma scale, best motor response, localizes pain, at hospital admission

== ENCOUNTER 2019-02-11 16:19 | Inpatient (IN) | payer MEDICARE, OTHER ==
[~2019-02-11] VITALS: Ht 162.6 cm; Wt 104.3 kg
[~2019-02-11 16:19] MED LIST: ASCORBIC ACID500 MG PO; ASPIRIN300 MG RC; BAYER CHEWABLE81 MG PO; CENTRUM SILVER1 EAC3; CO Q-10200 MG PO; EFFEXOR75 MG PO; LASIX40 MG PO; LIPITOR10 MG; LOVASTATIN20 MG PO; MOBIC7.5 MG PO; MYSOLINE 50 MG50 MG PO; MYSOLINE250 MG PO; NYSTATIN1 PWD TOPICAL; OMEGA-3100 MG PO; OSTEO BI-FLEX1 EAC1 PO; POTASSIUM99 M1 PO; PROPRANOLOL HCL20 MG PO; PROTONIX40 MG PO; PROVIGIL200 MG PO; SINEMET CR 50-1 EACH; SYNTHROID50 MCG PO; TOPAMAX100 MG PO; TOPAMAX50 MG PO; ULTRAM50 MG PO; VITAMIN B-122500 MCG PO; VITAMIN B-6100 MG PO; ZANAFLEX2 M1 PO
[2019-02-11 18:12] VITALS: BP 128/62; BMI 39.5
--- NOTE | 2019-02-11 19:00 | NUR ---
BEDSIDE REPORT COMPLETE. INTRODUCED SELF TO PT UPDATED INFORMATION BOARD. PT SITTING UP IN BED EYES CLOSED RESTING QUIETLY. EASILY AROUSED WITH VERBAL STIMULI. DENIES ANY NEEDS OR PAIN. NO FAMILY AT BEDSIDE. CONTINUES ON 2L VIA NC. ALERT TO FIRST NAME ONLY. REORIENTED TO , PLACE, TIME. CALL LIGHT AND WATER WITHIN REACH, FALL PRECAUTIONS IN PLACE. WILL CONTINUE TO MONITOR
[2019-02-11 22:00] VITALS: BP 112/63
--- NOTE | 2019-02-12 00:30 | NUR ---
PROVIDED INCONTINENCE CARE FOR URINE AND BOWEL INCONTINENCE. COMPLETE LINEN CHANGE AND GOWN. PT DENIES ANY OTHER NEEDS OR PAIN. CALL LIGHT AND WATER WITHIN REACH, FALL PRECAUTIONS IN PLACE. WILL CONTINUE TO MONITOR
--- NOTE | 2019-02-12 04:04 | NUR ---
pt lying in bed supine hob 30 degrees eyes closed resting quietly. continues on 2l via nc. brief and linens clean and dry. will continue to monitor
--- NOTE | 2019-02-12 05:30 | NUR ---
PERFORMED INCONTINENCE CARE FOR MED VOID. NEW BRIEF AND UNDERPADS ON. BED IN LOWEST POSITION, CL IN REACH, FALL PRECAUTIONS IN PLACE. WILL CONTINUE TO MONITOR
[2019-02-12 05:46] LABS: BASOPHILS 0.4 % (0-2); EOSINOPHILS 7.3 % (0-7); HEMATOCRIT 39.9 % (36.0-48.0); HEMOGLOBIN 12.6 g/dL (12-16); IMMATURE GRANULOCYTES 0.4 % (0-5); LYMPHOCYTES 35.3 % (15-50); MCH 32.5 pg (26.0-34.0); MCHC 31.6 g/dL (31.0-37.0); MCV 102.8 fL (80.0-100.0); MEAN PLATELET VOLUME 10.3 fL (7.4-10.4); MONOCYTES 8.4 % (2-11); NEUTROPHILS 48.2 % (40-80); PLATELET COUNT 229 10x3/uL (130-400); RBC 3.88 10x6/uL (4.00-5.40); RDW 12.8 % (11.5-14.5)
[2019-02-12 05:58] LABS: WBC 8.3 10x3/uL (4.8-10.8)
[2019-02-12 07:44] VITALS: BP 135/66
[2019-02-12 10:22] VITALS: Ht 162.6 cm; Wt 104.3 kg
--- NOTE | 2019-02-12 10:28 | NUR ---
ALERT AND ORIENTED. ATE BRAKFAST. RESTING AT THIS TIME. CL IN REACH.
--- NOTE | 2019-02-12 17:11 | NUR ---
NO CHANGE IN ASSESSMENT. CAN FEED SELF WITH L ARM. SHE DIDN'T WANT TO FEED HERSELF BUT, WITH ENCOURAGEMENT SHE WAS ABLE TO DO IT.
--- NOTE | 2019-02-12 18:21 | NUR ---
CHANGED POSITIONS MULT. TIMES WITH R ARM PLACED ON PILLOW. HAS SCDS ON.
--- NOTE | 2019-02-12 19:05 | NUR ---
BEDSIDE REPORT COMPLETE. PT SITTING UP IN BED EYES CLOSED RESTING QUIETLY. EASILY AROUSED WITH VERBAL STIMULATION. NO CONCERNS VOICED. DENIES ANY PAIN. BED LINEN AND BRIEF DRY. CONTINUES ON 2L VIA NC. CALL LIGHT WITHIN REACH, FALL PRECAUTIONS IN PLACE. WILL CONTINUE TO MONITOR
[2019-02-12 21:03] VITALS: BP 126/72
--- NOTE | 2019-02-12 23:17 | NUR ---
QUIET HOURS. PT LYING IN BED EYES CLOSED RESTING QUIETLY. CONTINUES ON 2L VIA NC. NO SIGNS OF DISTRESS NOTED. WILL CONTINUE TO MONITOR
--- NOTE | 2019-02-13 03:00 | NUR ---
PT LYING IN BED EYES CLOSED RESTING QUIETLY.
--- NOTE | 2019-02-13 05:58 | NUR ---
PT LYING IN BED EYES CLOSED RESTING QUIETLY. CONTINUES ON 2L VIA NC. NO SIGNS OF DISTRESS NOTED. WILL CONTINUE TO MONITOR
[2019-02-13 08:00] VITALS: BP 121/58
--- NOTE | 2019-02-13 09:17 | NUR ---
PATIENT IS NON VERBAL THIS MORNING. BED ALARM ON. CALL LIGHT WITHIN REACH. SITTING UP IN BED. PATIENT SITTING UP IN BED FOR BREAKFAST. WOULD NOT FEED SELF AFTER TWO ATTEMPTS BY STAFF TO GET HER TO FEED SELF, CUTTER INSPECTOR FEED PATIENT. WILL CONTINUE WITH PLAN OF CARE
--- NOTE | 2019-02-13 12:52 | NUR ---
OCCUPATIONAL THERAPIST IN ROOM DOING AN EVALUATION ON PATIENT. GIVING PATIENT A BED BATH
--- NOTE | 2019-02-13 16:59 | NUR ---
PATIENTS FAMILY INTO VISIT. PATIENT IS AWAKE EYES OPENED AND LOOKING AROUND ROOM.
--- NOTE | 2019-02-13 17:00 | NUR ---
SPEECH THERAPIST IN ROOM. WORKING WITH PATIENT WITH EATTING SUPPGABRIELLA
--- NOTE | 2019-02-13 18:45 | NUR ---
BEDSIDE REPORT COMPLETE. PT LYING IN BED EYES CLOSED RESTING QUIETLY. NO SIGNS OF DISTRESS NOTED. CONTINUES ON 2L VIA NC. CALL LIGHT AND WATER WITHIN REACH, FALL PRECAUTIONS IN PLACE. WILL CONTINUE TO MONITOR
[2019-02-13 19:50] VITALS: BP 128/54
--- NOTE | 2019-02-13 23:34 | NUR ---
QUIET HOURS. PT LYING IN BED EYES CLOSED RESTING QUIETLY. RR EVEN AND UNLABORED.
--- NOTE | 2019-02-14 03:18 | NUR ---
PT LYING IN BED EYES CLOSED RESTING QUIETLY. CONTINUES ON 2L VIA NC. RR EVEN AND UNLABORED.
--- NOTE | 2019-02-14 06:14 | NUR ---
PT LYING IN BED EYES CLOSED RESTING QUIETLY. BRIEF AND BED LINEN CLEAN AND DRY
[2019-02-14 06:24] LABS: BASOPHILS 0.2 % (0-2); EOSINOPHILS 3.7 % (0-7); HEMATOCRIT 39.3 % (36.0-48.0); HEMOGLOBIN 12.7 g/dL (12-16); IMMATURE GRANULOCYTES 0.3 % (0-5); LYMPHOCYTES 37.3 % (15-50); MCH 32.7 pg (26.0-34.0); MCHC 32.3 g/dL (31.0-37.0); MCV 101.3 fL (80.0-100.0); MEAN PLATELET VOLUME 10.2 fL (7.4-10.4); MONOCYTES 10.6 % (2-11); NEUTROPHILS 47.9 % (40-80); RBC 3.88 10x6/uL (4.00-5.40); RDW 12.7 % (11.5-14.5); WBC 9.9 10x3/uL (4.8-10.8)
[2019-02-14 06:32] LABS: CALC OSMOLALITY 295 mosm/kg (275-300); CALCIUM 8.9 mg/dL (8.5-10.1); CARBON DIOXIDE 32.1 mmol/L (21.0-32.0); CHLORIDE - SERUM 106 mmol/L (98-107); CREATININE - SERUM 0.7 mg/dL (0.6-1.3); GLUCOSE 135 mg/dL (74-106); POTASSIUM - SERUM 3.8 mmol/L (3.5-5.1); SODIUM 145 mmol/L (136-145); UREA NITROGEN 26 mg/dL (7-18); eGFR NON AFRICAN AMERICAN 87 mL/min (90-120)
[2019-02-14 06:33] LABS: PLATELET COUNT 288 10x3/uL (130-400)
[2019-02-14 08:00] VITALS: BP 120/58
--- NOTE | 2019-02-14 08:00 | NUR ---
PATIENT IS AWAKE AND ALERT THIS AM. SITTING UP IN BED TO EAT BREAKFAST. ON A MECH SOFT WITH GROUND MEATS AND NECTAR THICK LIQ DIET. SET UP TRAY. PATIENT ABLE TO FEED SELF THIS MORNING. PATIENT IS APHSIC AND UNABLE TO COMMUNICATE ALL NEEDS. BED ALARM ON. CALL LIGHT WITHIN REACH. WILL CONTINUE WITH PLAN OF CARE
--- NOTE | 2019-02-14 13:23 | NUR ---
PHYSICAL THERAPY IN ROOM GETTING PATIENT UP. TOTAL ASST OF TWO PEOPLE FROM BED INTO WHEELCHAIR
--- NOTE | 2019-02-14 19:25 | NUR ---
AWAKE AND ALERT. RESTING IN BED. RESPIRATIONS UNLABORED. RIGHT SIDE FLACID. SPEAKS IN ONE OR TWO WORD SENTENCES. NO ACUTE DISTRESS NOTED. AT THIS TIME. CALL LIGHT IN REACH.
[2019-02-14 20:44] VITALS: BP 138/65
--- NOTE | 2019-02-15 01:07 | NUR ---
AWAKE AND RESTING IN BED. INCONTINENT OF URINE AND BRIEF AND PADS CHANGED. REPOSITIONED FOR COMFORT. NO ACUTE DISTRESS NOTED. CALL LIGHT IN REACH.
--- NOTE | 2019-02-15 02:51 | NUR ---
SLEEPING WITH RESPIRATIONS UNLABORED. NO DISTRESS NOTED. CALL LIGHT IN REACH.
--- NOTE | 2019-02-15 05:06 | NUR ---
QUIET HOURS. NO ACUTE CHANGES IN CONDITION THIS SHIFT. RESPIRATIONS UNLABORED. NO DISTRESS NOTED. CALL LIGHT IN REACH.
--- NOTE | 2019-02-15 07:21 | NUR ---
RESTING WO DISTRESS. RESP EVEN AND UNLABORED. CL IN REACH.
[2019-02-15 08:00] VITALS: BP 126/63
--- NOTE | 2019-02-15 11:45 | NUR ---
NOTIFIED OF PT CHANGE IN LOC DURING THERAPY. PT WAS LETHARGIC AND DIAPHORETIC. FSBS CHECKED (101) AND VSS. PT RETURNED TO BED. DR MCCARTNEY NOTIFIED. CT OF HEAD WITHOUT CONTRAST ORDERED.
--- NOTE | 2019-02-15 13:56 | NUR ---
Nutrition Follow-up: Pt out of room at [place] during time of RD rounding. Chart reviewed. Pt continues working with HOME HEALTH PROVIDER for aphasia. Diet: Regular Mech soft with ground meats and nectar thick liquids PO intake: ~60% average x last 10 meals recorded Labs reviewed, elevated glucose noted. Meds reviewed. Noted "reddened area" to buttocks on nursing skin assessment. Last BM 02/14/19 x 2. Wt: 230# (02/12/19) Continue current nutrition regimen, or diet per HOME HEALTH PROVIDER. RD following
--- NOTE | 2019-02-15 15:30 | NUR ---
PATIENT ADMITTED TO REHAB FROM ACUTE FLOOR. DR. MORALES IS HER PCP. SPOKE WITH DAUGHTER ALINA BROWNLEE AND SHE WOULD LIKE HER MOTHER TO BE DISCHARGED TO [facility] DUE TO HER WORK. REFERRAL HAS BEEN FAXED. WILL AWAIT THEIR ANSWER. WILL CONTINUE TO FOLLOW WITH PATIENT
--- NOTE | 2019-02-15 15:53 | NUR ---
NO CHANGE IN ASSESSMENT. RESTING WITH EYES CLOSED. CL IN REACH.
--- NOTE | 2019-02-15 18:27 | NUR ---
CT BRAIN REPORT CALLED TO DR MCCARTNEY. NO NEW ORDERS AT THIS TIME.
--- NOTE | 2019-02-15 18:30 | NUR ---
REPORTED TO DR MCCARTNEY. PATIENT HAS HAD A CHANGE IN MENTAL STATUS. SHE IS ALERT AT TIMES AND AT TIMES SHE IS LETHARGIC. DR MCCARTNEY AWARE. REPOSITIONED UP IN BED.
--- NOTE | 2019-02-15 19:00 | NUR ---
BEDSIDE REPORT COMPLETE. PT LYING IN BED HOB 20 DEGREES EYES CLOSED RESTING QUIETLY. OPENS EYES BRIEFLY WITH STIMULATION. VS STABLE. SHIFT ASSESSMENT COMPLETE. CALL LIGHT WITHIN REACH, FALL PRECAUTIONS IN PLACE. WILL CONTINUE TO MONITOR
[2019-02-15 19:30] VITALS: BP 149/76
--- NOTE | 2019-02-15 23:13 | NUR ---
QUIET HOURS. PT LYING IN BED EYES CLOSED RESTING QUIETLY. RR EVEN AND UNLABORED. WILL CONTINUE TO MONITOR
--- NOTE | 2019-02-16 04:59 | NUR ---
PT LYING IN BED EYES CLOSED RESTING QUIETLY. RR EVEN AND UNLABORED. WILL CONTINUE TO MONITOR
--- NOTE | 2019-02-16 07:14 | NUR ---
RESPONDS TO VERBAL BY OPENING EYES. DOES NOT SPEAK. DR MCCARTNEY AWARE OF DECREASED LOC. TOOK MEDS DURING HS SHIFT. WILL PROBABLY DC TO ACUTE FLOOR TODAY.
[2019-02-16 07:34] LABS: BASOPHILS 0.3 % (0-2); EOSINOPHILS 3.3 % (0-7); HEMOGLOBIN 13.2 g/dL (12-16); IMMATURE GRANULOCYTES 0.3 % (0-5); LYMPHOCYTES 35.1 % (15-50); MCH 32.3 pg (26.0-34.0); MCHC 32.2 g/dL (31.0-37.0); MCV 100.2 fL (80.0-100.0); MEAN PLATELET VOLUME 10.4 fL (7.4-10.4); MONOCYTES 9.9 % (2-11); NEUTROPHILS 51.1 % (40-80); PLATELET COUNT 295 10x3/uL (130-400); RBC 4.09 10x6/uL (4.00-5.40); RDW 12.5 % (11.5-14.5)
[2019-02-16 07:58] LABS: CALC OSMOLALITY 288 mosm/kg (275-300); CALCIUM 9.1 mg/dL (8.5-10.1); CARBON DIOXIDE 30.3 mmol/L (21.0-32.0); CHLORIDE - SERUM 104 mmol/L (98-107); CREATININE - SERUM 0.7 mg/dL (0.6-1.3); GLUCOSE 109 mg/dL (74-106); POTASSIUM - SERUM 4.3 mmol/L (3.5-5.1); SODIUM 143 mmol/L (136-145); UREA NITROGEN 21 mg/dL (7-18); eGFR NON AFRICAN AMERICAN 87 mL/min (90-120)
[2019-02-16 08:04] VITALS: BP 129/72
--- NOTE | 2019-02-16 09:03 | RHP ---
PATIENT: DONNA SIMONS MEDICAL RECORD: [id number] ACCOUNT: [id number] [facility] [birth year] ADMISSION DATE: 02/11/19 REHABILITATION HISTORY AND PHYSICAL EXAMINATION POST ADMISSION PHYSICIAN EXAMINATION ADMITTING DIAGNOSIS: Status post cerebrovascular accident. 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 She was admitted from the Emergency Department on 02/04/2019. EMS brought the patient in. She was found by her on the floor. He had last seen her in a normal state of health around 2200 on the night before. On arrival, she was mostly nonverbal and somewhat lethargic. The patient was able to speak but definitely had garbled speech at time. She had right facial droop. She had a right flaccid upper extremity with nearly complete flaccid right lower extremity. Her spouse cannot drive and there was no one with the patient at the time to gather her history. She does have a history of Parkinson's, migraines, chronic back pain, vitamin D deficiency, dementia, and depression. On exam, she was general an overweight female with expressive aphasia. She was noted right facial droop and expressive aphasia. She had a depressed effect upon exam. MRI of her brain showed a large valve in an acute subacute left middle cerebral artery territory infarct with a small amount of micro-hemorrhage posterior temporal occipital lobes. Dr. Lewis was consulted. Speech therapy was consulted. The patient was recommended pureed diet with honey thick liquids and also they would follow up for dietary tolerant, swallowing safety and dysphagia and language therapy. The patient's daughter states the patient was independent with her ADLs and mobility prior to this exam. Currently, the patient is able to answer simple questions and follow simple commands with intermittent accuracy, demonstrate improved core strength resulting in fair sitting balance. She is able to follow 1-step commands and self-correct with verbal cues. She continued to have some right hemiparesis, oropharyngeal dysphagia, and requires feeding and is max assist for ADLs and bed mobility. COMORBIDITIES: Include global aphasia, expressive aphasia, acute ischemic stroke, right hemiparesis, right facial droop, hyperlipidemia, vitamin D deficiency, migraines, history of TIA, chronic back pain, dementia, Parkinson's, and depression. PAST MEDICAL HISTORY: Significant for chronic back pain. He got a history of vitamin D deficiency, hyperlipidemia, dementia, depression, and migraines. PAST SURGICAL HISTORY: Please see previous charts. ALLERGIES: No known drug allergies. CURRENT MEDICATIONS: Include aspirin suppository as needed 300 mg daily. She is on Protonix 40 mg daily, Synthroid 50 mcg daily, propranolol 20 mg b.i.d., potassium 99 mg b.i.d., Mevacor 40 mg at bedtime, and Nystatin powder topically t.i.d. HABITS: No history of alcohol or tobacco use. FAMILY HISTORY: Noncontributory. HISTORY AND PHYSICAL [id number] DONNA SIMONS SOCIAL HISTORY: The patient would like to return home at her prior level of functioning or somewhat improved from her current status of health. REVIEW OF SYSTEMS: GENERAL: Does complain of weakness. HEENT: Denies cold, cough, or congestion. CARDIOVASCULAR: Denies chest pain. PHYSICAL EXAMINATION: VITAL SIGNS: Stable, afebrile. GENERAL: A morbidly obese female in no acute distress. She is alert upon exam, does have some difficulty expressing appropriate answers. HEENT: Normocephalic and atraumatic. Mucosa moist. NECK: Supple. No lymphadenopathy. LUNGS: Clear in upper rogers. No wheezing or rales. HEART: Regular rate and rhythm. No murmurs, rubs, or gallops. ABDOMEN: Soft, nondistended. Positive bowel sounds times 4. EXTREMITIES: No clubbing, cyanosis, or edema. NEUROLOGIC: She does have noted weakness in her extremities. She does have difficulty speaking. She can answer questions, but mainly in just yes and no fashion. LABORATORY DATA: White count of 6.5, H and H of 11 and 36, and platelet count was noted to be 212. Chemistry showed sodium 145, potassium 3.7, creatinine of 10 and 0.6 and blood sugar was 121. UA was negative. Her INR is noted to be 1.08. ASSESSMENT: This is a 73-year-old female patient admitted to rehab with a working diagnosis of ischemic and hemorrhagic CVA. The patient has potential to make improvement. We instituted the following multidisciplinary therapies including, but not limited to physical, occupational, respiratory, speech, nutritional services, prosthetics, and orthotics. Given her complex medical condition and risks for more complications, rehabilitation services cannot be provided at a low level of care such as skilled nurse facility. PLAN: 1. [facility] to include the following disciplines: A. Physical therapy to improve gait, all transfer skills and bed mobility to a modified independent level. B. Occupational therapy to a modified independent level. C. Case management to assist with discharge planning and placement options. D. Nutrition to assist with nutritional needs. E. Rehabilitation nursing to assist in monitoring the patient's underlying medical conditions and to assist with any type of bowel or bladder management. 2. The patient's current medication and medical care will be continued. 3. Placed on standard fall precautions 4. We will go ahead and work with speech therapy work with her work on her aphasia and difficulties with speech. 5. We will follow up with speech therapy and also on her dietary compliance and what she can and cannot do. 6. We will see again in the a.m. on Thursday. TRANSINT:[id number] Voice Confirmation ID: [id number] DOCUMENT ID: [id number] HISTORY AND PHYSICAL [id number] DONNA SIMONS notes whether there has been none or any medical/functional change since admission: - No change since preadmission screen. SANDHYA attests patient continues to be appropriate for IRF: - Continues to be appropriate. JOAQUIN MCCARTNEY MD at 0903 CC: [id number] DICTATION DATE: 02/11/191933 FIGHT MANAGER: 02/11/192216 ADM IN [facility] [address] [place] [address]
--- NOTE | 2019-02-16 09:19 | NUR ---
PATIENT IS TO DC TO ACUTE. ORDERS FAXED TO PATTERN VAULT CLERK. CHANGE IN LOC. EXTENSION OF CVA.
--- NOTE | 2019-02-16 09:53 | NUR ---
REPORT CALLED TO MICHAEL BARCENAS. ADMIT TO ROOM 2224.
--- NOTE | 2019-02-16 09:56 | NUR ---
DUE TO CHANGE IN MEDICAL CONDTION, DISCHARGE TO [facility] PLACED ON HOLD. PATIENT IS DISCHARGING FROM REHAB BACK TO ACUTE FLOOR. FAMILY AT BEDSIDE.
--- NOTE | 2019-04-12 09:55 | DS ---
PATIENT:DONNA SIMONS :[birth year] MEDICAL RECORD: [id number] DISCHARGE SUMMARY ADMISSION DATE: 02/11/19 DISCHARGE DATE: 02/16/19 This is a discharge dated 02/16/2019 from inpatient rehabilitation. PRIMARY DIAGNOSES: Decreased functional ability and ability to provide activities of daily living secondary to left middle cerebral artery cerebrovascular accident. SECONDARY DIAGNOSES: 1. Right hemiparesis. 2. Expressive aphasia. 3. Dysphagia. 4. Urinary and bowel incontinence. 5. Parkinson's disease. 6. Migraines. 7. Dementia. 8. Vitamin D deficiency. 9. Depression. 10. Hyperlipidemia. 11. Hypothyroidism. HOSPITAL COURSE: Full H&P is located elsewhere on the chart on this 73-year-old female who was admitted to inpatient rehab for physical therapy and occupational therapy to improve gait, transfer skills, bed mobility, and activities of daily living to a modified independent level. She was evaluated by PT, OT and ST and their plans of care were followed. She had supplemental oxygen to keep sats greater than 90%. She was on oral anticoagulation for secondary stroke prevention. She required [facility]cf care for observation and assessment and medication administration. She was progressing with therapies, but there was a significant change in level of consciousness. CT head was performed without change noted from previous imaging. However, level of consciousness and alertness continued to decline. She was transferred to the acute care setting and having met none of her therapy goals on 02/16/2019. DISCHARGE MEDICATIONS: As per discharge medication reconciliation. DISCHARGE DISPOSITION: The patient is discharged to the acute hospital for higher level of care. She will continue her current diet and level of activity as able and will follow with primary care and specialists in the acute setting. At least 30 minutes was spent in this discharge activity. TRANSINT:[id number] Voice Confirmation ID: [id number] DOCUMENT ID: [id number] Dictated By: RENÉE LOPEZ I have interviewed/examined the above patient and agree with these documented findings. DISCHARGE SUMMARY REPORT [id number] DONNA SIMONS,JOAQUIN CALL MD at 0958 at 0955 CC: [id number] DICTATION DATE: 04/10/19 180 THERAPEUTIC PROGRAM WORKER: 04/11/19 0209 DIS IN 02/16/19 [facility] [address] [place] [address]
== END 2019-02-16 10:12 | disposition short-term general hospital (02) | DRG 65 ==
LOC: D.REHAB 16:19
PROVIDERS: ADMIT Emergency Medicine; ATTEND Emergency Medicine
DX: I63.512 Cerebral infarction due to unspecified occlusion or stenosis of left middle cerebral artery (principal); G81.91 Hemiplegia, unspecified affecting right dominant side; E46 Unspecified protein-calorie malnutrition; I16.1 Hypertensive emergency; I69.320 Aphasia following cerebral infarction; G31.83 Neurocognitive disorder with Lewy bodies; I69.392 Facial weakness following cerebral infarction; E78.5 Hyperlipidemia, unspecified; E03.9 Hypothyroidism, unspecified; F02.80 Dementia in other diseases classified elsewhere, unspecified severity, without behavioral disturbance, psychotic disturbance, mood disturbance, and anxiety; F32.9 Major depressive disorder, single episode, unspecified; G43.909 Migraine, unspecified, not intractable, without status migrainosus; D64.9 Anemia, unspecified; E86.0 Dehydration; Z68.29 Body mass index [BMI] 29.0-29.9, adult; R56.9 Unspecified convulsions; Z86.711 Personal history of pulmonary embolism

== ENCOUNTER 2019-02-16 10:18 | Inpatient (IN) | payer MEDICARE, OTHER ==
[~2019-02-16] VITALS: Ht 162.6 cm; Wt 78.4 kg
--- NOTE | 2019-02-16 10:00 | NUR ---
PT RECIVED FROM INPATIENT REHAB. NO SIGNS OF DISTRESS. IV TO LEFT WRIST PATENT. RIGHT SIDE FLACCID FROM STROKE. DENIES ANY FURTHER NEED AT THIS TIME. CALL LIGHT IN REACH. BED LOW POSITION.
[2019-02-16 11:30] LABS: BASOPHILS 0.4 % (0-2); EOSINOPHILS 3.5 % (0-7); HEMATOCRIT 41.7 % (36.0-48.0); HEMOGLOBIN 13.7 g/dL (12-16); IMMATURE GRANULOCYTES 0.3 % (0-5); LYMPHOCYTES 28.3 % (15-50); MCH 32.9 pg (26.0-34.0); MCHC 32.9 g/dL (31.0-37.0); MONOCYTES 9.6 % (2-11); NEUTROPHILS 57.9 % (40-80); PLATELET COUNT 303 10x3/uL (130-400); RBC 4.17 10x6/uL (4.00-5.40); RDW 12.6 % (11.5-14.5); WBC 9.5 10x3/uL (4.8-10.8)
[2019-02-16 11:33] LABS: INR 1.02 (0.85-1.17); PROTIME 12.9 SECONDS (11.6-15.0)
[2019-02-16 12:18] VITALS: BP 119/57
[2019-02-16 15:39] VITALS: BP 100/56; BMI 29.7
[2019-02-16 16:01] VITALS: BP 100/56
[2019-02-16 18:01] LABS: APPEARANCE CLEAR (CLEAR); BILIRUBIN NEGATIVE (NEGATIVE); COLOR YELLOW (YELLOW); GLUCOSE NEGATIVE (NEGATIVE); KETONE NEGATIVE (NEGATIVE); NITRITE NEGATIVE (NEGATIVE); PROTEIN NEGATIVE (NEGATIVE); UROBILINOGEN NORMAL (NORMAL)
[2019-02-16 18:02] LABS: BACTERIA MODERATE /hpf (NEGATIVE); EPITHELIAL CELLS 0-5 /hpf (0-5); RED CELLS - URINE OCC /hpf (0-5); WHITE CELLS - URINE 0-5 /hpf (NEGATIVE)
--- NOTE | 2019-02-16 20:00 | NUR ---
ASSESSMENT PER FLOWSHEET. RT ARM FLACCID RT LEG TRACE MOVEMENT WITH MODERATE WEAKNESS. IV TO LEFT WRIST WITH D51/2NS AT 60CC'S/HR. SCD'S ON. SR UP X2 CALL LIGHT WITHIN REACH.PT IS NPO.
[2019-02-16 20:34] VITALS: BP 128/69
--- NOTE | 2019-02-16 21:15 | NUR ---
MED GIVEN PO WITH TINY BITE OF APPLESAUCE. HOB WAS UP 45 DEGREES.
--- NOTE | 2019-02-17 | NUR ---
EYES CLOSED RESPIRATIONS WITH EASE AND UNLABORED.
[2019-02-17 00:41] VITALS: BP 124/82
--- NOTE | 2019-02-17 04:00 | NUR ---
INC URINE COMPLETE BED BATH WITH LINENS CHANGED. CHECKED IV FOR PATENCY NO BLOOD RETURN NOTED. REDNESS NOTE AT SITE. REMOVED IV AND RESITED TO UPPER LEFT WRIST AREA #22G ANGIOCATH X1 ATTEMPT. MEDS GIVEN PER JUL. RESUMED IV FLUIDS.
[2019-02-17 05:12] VITALS: BP 129/66
[2019-02-17 06:16] LABS: BASOPHILS 0.2 % (0-2); EOSINOPHILS 2.5 % (0-7); HEMOGLOBIN 13.6 g/dL (12-16); IMMATURE GRANULOCYTES 0.2 % (0-5); MCH 33.8 pg (26.0-34.0); MCV 99.5 fL (80.0-100.0); MEAN PLATELET VOLUME 10.6 fL (7.4-10.4); NEUTROPHILS 60.1 % (40-80); PLATELET COUNT 285 10x3/uL (130-400); RBC 4.02 10x6/uL (4.00-5.40); RDW 12.7 % (11.5-14.5)
[2019-02-17 06:17] LABS: WBC 12.9 10x3/uL (4.8-10.8)
[2019-02-17 06:26] LABS: CALC OSMOLALITY 291 mosm/kg (275-300); CALCIUM 8.6 mg/dL (8.5-10.1); CARBON DIOXIDE 28.2 mmol/L (21.0-32.0); CHLORIDE - SERUM 103 mmol/L (98-107); CREATININE - SERUM 0.6 mg/dL (0.6-1.3); GLUCOSE 109 mg/dL (74-106); POTASSIUM - SERUM 4.4 mmol/L (3.5-5.1); SODIUM 144 mmol/L (136-145); UREA NITROGEN 24 mg/dL (7-18); eGFR NON AFRICAN AMERICAN > 90 mL/min (90-120)
[2019-02-17 08:34] VITALS: BP 108/58
--- NOTE | 2019-02-17 08:51 | NUR ---
ROUSES TO VERBAL AND TACTILE STIMULATION. NON VERBAL THIS AM. UNABLE TO ASSESS ORIENTATION. LUNGS ARE CLEAR BILATERALLY, NO COUGH NOTED. SKIN IS INTACT WITHOUT REDNESS. IV TO LEFT HAND PATENT WITHOUT REDNESS AT INSERTION SITE. NO NEEDS NOTED. NPO FOR TEST THIS AM.
--- NOTE | 2019-02-17 10:00 | NUR ---
INCONTINENT OF URINE. SKIN CARE PER STAFF. REPOSITIONED IN BED FOR COMFORT.
--- NOTE | 2019-02-17 11:52 | NUR ---
OT NOTE: PT DOING VERY WELL TODAY. INITIALLY VERY LETHARGIC, HOWEVER, MORE ALERT FOLLOWING BED MOB. PRACTICED ROLLING SIDE TO SIDE AND PT HAVING MUCH MORE ACTIVE MOVEMENT IN R LE. EXHIBITED R KNEE FLEX WITH ATTEMPTS TO ROLL TO L SIDE AND BRIDGE FOR REMOVAL OF BED CONCEPCION. CONT WITH NO ACTIVE MOVEMENT IN R UE. SUPINE TO SIT WITH MOD ASSIST. SITTING BALANCE WITH MIN ASSIST ONCE POSITIONED AT EOB. ABLE TO WASH FACE WITH SET UP AND USE OF L HAND. SET UP WITH ORAL CARE AND USE OF L HAND. MAX ASSIST WITH TOILET HYGIENE BUT PT WAS ABLE TO TELL WHEN SHE NEEDED TO HAVE A BM. COMPLETELY LIQUID BM NOTED. REMAINS CONFUSED AND DISORIENTED, HOWEVER, APPEARS TO BE VERBALIZING MORE THAN YESTERDAY. MOST RESPONSES ARE, " I DONT KNOW". KACIE CASTILLO, OTR/L
--- NOTE | 2019-02-17 12:00 | NUR ---
RESTING QUIETLY IN BED. NO NEEDS NOTED.
--- NOTE | 2019-02-17 12:08 | NUR ---
OT NOTE: PT COMPLETED BED MOB TASKS WITH MAEVE Pryor. PT COMPLETED HGYIENE TASKS WITH MEAVE Pryor. THANK YOU, NANCI LOVE
[2019-02-17 13:09] VITALS: BP 108/64
--- NOTE | 2019-02-17 14:00 | NUR ---
INCONTINENT OF URINE. LINENS CHANGED AND SKIN CARE PER STAFF. URINE IS VERY ODIFEROUS. WILL MONITOR.
[2019-02-17 14:56] VITALS: Ht 162.6 cm; Wt 78.4 kg
--- NOTE | 2019-02-17 16:00 | NUR ---
RESTING QUIETLY IN BED. ASSISTED [facility] BED CONCEPCION PER STAFF. IS TALKING AND ASKING QUESTIONS BUT THEY DON'T MAKE SENSE.
[2019-02-17 17:11] VITALS: BP 99/58
--- NOTE | 2019-02-17 17:47 | MORECARE ---
CASE MANAGEMENT DISCHARGE SUMMARY PATIENT: DONNA SIMONS UNIT: [id number] ADM DATE: 02/16/19 AGE: 73 : 46 SEX: F ROOM/BED: D.2224 AUTHOR: CAMRYN ZAMORANO PHYSICIAN: REFERRING PHYSICIAN: JOAQUIN MCCARTNEY MD DATE OF SERVICE: 02/17/19 Discharge Plan Patient Name: DONNA SIMONS Facility: [facility]:[place] : 1945 Planned Disposition: Inpatient Rehab Anticipated Discharge Date: 02/17/19 Discharge Date: Expected LOS: 1 Initial Reviewer: [email or web address] Initial Review Date: 02/17/2019 Generated: 02/17/19 6:47 pm Comments DCP- Discharge Planning Updated by [id number]: Tori Schmidt on 02/17/19 4:[address] Patient Name: DONNA SIMONS Admission Status: Elective Accout number: [id number] Admission Date: 02-16-2019 : 1945 Admission Diagnosis: Attending: ONEYDA MCCARTNEY Current LOS: 1 Anticipated DC Date: 02-17-2019 Planned Disposition: Inpatient Rehab Primary Insurance: MEDICARE A & B Discharge Planning Comments: I met with patient. She is sitting up in the fed feeding herself supper. She is able to answer simple questions. She states it is ok to call her daughter, Radha. I informed her that she may be able to go to [facility] tomorrow. I spoke with Radha and she would like her mom to go to [facility] for inpatient rehab as previously set up. CM will continue to follow and assist with discharge planning/needs. Timekeeping Supervisor: Tori Schmidt DCP- Discharge Planning Updated by [email or web address]: Tori Schmidt on 02/17/19 10:[address] Patient's discharge plan was to go to [facility] inpatient rehab. I spoke with Ethel there and faxed updated clinical. CM will continue to follow and assist with discharge planning/needs. External Providers External Provider: [facility] Next Contact Date: Service Request Date: Service Type: Resolution: Reviewer: Comments: Patient Name: DONNA SIMONS Page [id number] at 1747 All edits/amendments must be made on the electronic document DICTATION DATE: 02/17/191746 TERRA COTTA MASON: JESSIKA 02/17/191746 RPT#: [id number] DC DATE: STATUS: ADM IN [facility] [address] [place] [address] END OF REPORT
--- NOTE | 2019-02-17 18:39 | NUR ---
ATE ABOUT 25% OF SUPPER. STATED "I DIDN'T LIKE THAT". HAD SMALL AMOUNT OF SOFT FORMED STOOL ON BEDPAN. SKIN CARE PER STAFF. NO CHANGES NOTED. DENIES NEEDS.
--- NOTE | 2019-02-17 19:31 | NUR ---
IN BED WITH EYES OPEN, ABLE TO VOICE NEEDS. DENIES ANY PAIN AT THIS TIME, BUT DID REQUEST HELP GETTING SITUATED IN BED, IV TO LEFT THUMB IS PATENT WITH FLUIDS INFUSING PER ORDERS WILL NOTE ANY CHANGE.
[2019-02-17 21:46] VITALS: BP 115/62
[2019-02-18 01:27] VITALS: BP 94/54
--- NOTE | 2019-02-18 02:33 | NUR ---
I have reviewed this patient and I concur with the Shift Assessment completed by the Licensed Practical Nurse today this shift.
[2019-02-18 05:24] LABS: BASOPHILS 0.3 % (0-2); EOSINOPHILS 3.3 % (0-7); HEMATOCRIT 39.2 % (36.0-48.0); HEMOGLOBIN 13.1 g/dL (12-16); IMMATURE GRANULOCYTES 0.3 % (0-5); LYMPHOCYTES 33.1 % (15-50); MCH 33.7 pg (26.0-34.0); MCHC 33.4 g/dL (31.0-37.0); MCV 100.8 fL (80.0-100.0); MEAN PLATELET VOLUME 10.2 fL (7.4-10.4); MONOCYTES 8.9 % (2-11); NEUTROPHILS 54.1 % (40-80); PLATELET COUNT 238 10x3/uL (130-400); RBC 3.89 10x6/uL (4.00-5.40); RDW 12.8 % (11.5-14.5); WBC 10.6 10x3/uL (4.8-10.8)
[2019-02-18 05:29] VITALS: BP 107/64
[2019-02-18 05:50] LABS: CALC OSMOLALITY 284 mosm/kg (275-300); CALCIUM 8.5 mg/dL (8.5-10.1); CARBON DIOXIDE 27.7 mmol/L (21.0-32.0); CHLORIDE - SERUM 106 mmol/L (98-107); CREATININE - SERUM 0.7 mg/dL (0.6-1.3); GLUCOSE 105 mg/dL (74-106); SODIUM 142 mmol/L (136-145); UREA NITROGEN 18 mg/dL (7-18); eGFR NON AFRICAN AMERICAN 87 mL/min (90-120)
--- NOTE | 2019-02-18 05:56 | NUR ---
IV TO LEFT THUMB REGION SHOWS S/S OF INFILTRATION, UNSUCCESSFUL FLUSH ATTEMPT. DCD THAT IV WITH CATHETER TIP INTACT, ATTEMPTED TIMES ONE TO UPPER OUTER FOREARM, UNSUCCESSFUL, ATTEMPTED TO LEFT FOREARM TIMES ONE SUCCESSFUL WITH GOOD RETURN AND FLUSH, REPOSITIONED AND SHOWS NO S/S OF ANY DISTRESS.
[2019-02-18 05:58] LABS: POTASSIUM - SERUM 3.7 mmol/L (3.5-5.1)
--- NOTE | 2019-02-18 07:29 | NUR ---
AWAKE AND ALERT. ORIENTED X3. NO C/O AT THIS TIME. PATIENTS SPEECH IS SOMETIMES GARBLED AND DIFFICULT TO UNDERSTAND. LUNGS ARE CLEAR BUT DIMINISHED IN LOWER LOBES. NO COUGH NOTED. SKIN IS INTACT WITHOUT REDNESS. IV TO LEFT FOREARM IS PATENT WITHOUT REDNESS AT INSERTION SITE. NO NEEDS NOTED.
[2019-02-18 08:18] VITALS: BP 128/76
--- NOTE | 2019-02-18 09:15 | NUR ---
INCONTINENT SMALL AMOUNT OF SOFT LLIGHT BROWN STOOL. SKIN CARE PER STAFF. ASSISTED WITH BREAKFAST AND ATE OVER 75%.
--- NOTE | 2019-02-18 09:56 | MORECARE ---
CASE MANAGEMENT DISCHARGE SUMMARY PATIENT: DONNA SIMONS UNIT: [id number] ADM DATE: 02/16/19 AGE: 73 : 46 SEX: F ROOM/BED: D.2224 AUTHOR: LONA,DOC PHYSICIAN: REFERRING PHYSICIAN: JOAQUIN MCCARTNEY MD DATE OF SERVICE: 02/18/19 Discharge Plan Patient Name: DONNA SIMONS Facility: [facility]:[place] : 1945 Planned Disposition: Inpatient Rehab Anticipated Discharge Date: 02/17/19 Discharge Date: Expected LOS: 1 Initial Reviewer: [email or web address] Initial Review Date: 02/17/2019 Generated: 02/18/19 10:56 am Comments DCP- Discharge Planning Updated by [email or web address]: Tori Schmidt on 02/18/19 8:[address] Updated clinical faxed to [facility]. CM will continue to follow and assist with discharge planning/needs. DCP- Discharge Planning Updated by [email or web address]: Tori Schmidt on 02/17/19 4:[address] Patient Name: DONNA SIMONS Admission Status: Elective Accout number: [id number] Admission Date: 02-16-2019 : 1945 Admission Diagnosis: Attending: ONEYDA MCCARTNEY Current LOS: 1 Anticipated DC Date: 02-17-2019 Planned Disposition: Inpatient Rehab Primary Insurance: MEDICARE A & B Discharge Planning Comments: I met with patient. She is sitting up in the fed feeding herself supper. She is able to answer simple questions. She states it is ok to call her daughter, Radha. I informed her that she may be able to go to [facility] tomorrow. I spoke with Radha and she would like her mom to go to [facility] for inpatient rehab as previously set up. CM will continue to follow and assist with discharge planning/needs. Carry Out Clerk: Tori Schmidt DCP- Discharge Planning Updated by [id number]: Tori Schmidt on 02/17/19 10:[address] Patient's discharge plan was to go to [facility] inpatient rehab. I spoke with Ethel there and faxed updated clinical. CM will continue to follow and assist with discharge planning/needs. Last DP export: 02/17/19 4:47 Patient Name: DONNA SIMONS Page [id number] at 0956 All edits/amendments must be made on the electronic document DICTATION DATE: 02/18/19955 RETIREMENT SALES CONSULTANT: JESSIKA 02/18/19955 RPT#: [id number] DC DATE: STATUS: ADM IN [facility] [address] [place] [address] END OF REPORT
--- NOTE | 2019-02-18 10:01 | NUR ---
OT NOTE: CONT WITH CONF AND DISORIENTATION. MOST ANSWERS ARE " I DONT KNOW". ABLE TO MAKE NEEDS KNOWN APPROX 50% OF TIME. BED MOB WITH MIN/MOD ASSIST FOR SUPINE TO SIT. SITTING BALANCE/TRUNK STRENGTHENING ON EOB WITH MIN ASSIST AND MAX VC TO KEEP HEAD UP. WT BEARING THROUGH R UE WITH MAX ASSIST. LIMITED MOVEMENT IN R LE TODAY COMPARED TO YESTERDAY, HOWEVER, PT MORE LETHARGIC TODAY. SET UP WITH WASHING FACE WITH WASH CLOTH WITH L HAND. ABLE TO HOLD CUP WITH L HAND AND DRINK; ABLE TO BRUSH HAIR WITH L HAND AND MIN ASSIST. CONT WITH COG RETRAINING/ORIENTATION. KACIE CASTILLO, OTR/L
[2019-02-18] MEDS ORDERED: ASPIRIN300 MG PO (11:51)
[2019-02-18] MEDS ORDERED: DILANTIN100 MG PO (11:53)
[2019-02-18] MEDS ORDERED: LEVOFLOXACIN500 MG PO (11:53)
--- NOTE | 2019-02-18 12:18 | MORECARE ---
CASE MANAGEMENT DISCHARGE SUMMARY PATIENT: DONNA SIMONS UNIT: [id number] ADM DATE: 02/16/19 AGE: 73 : 46 SEX: F ROOM/BED: D.2224 AUTHOR: CAMRYN ZAMORANO PHYSICIAN: REFERRING PHYSICIAN: JOAQUIN MCCARTNEY MD DATE OF SERVICE: 02/18/19 Discharge Plan Patient Name: DONNA SIMONS Facility: [facility]:[place] : 1945 Planned Disposition: Inpatient Rehab Anticipated Discharge Date: 02/17/19 Discharge Date: Expected LOS: 1 Initial Reviewer: [email or web address] Initial Review Date: 02/17/2019 Generated: 02/18/19 1:18 pm Comments DCP- Discharge Planning Updated by [email or web address]: Tori Schmidt on 02/18/19 11:[address] Patient Name: DONNA SIMONS Encounter No: [id number] : 1945 Primary Insurance: MEDICARE A & B Anticipated DC Date: 02-17-2019 Planned Disposition: Inpatient Rehab External Planned Provider: : DCP follow-up note: Patient and family in agreement with discharge plan. No changes to plan. I spoke to her daughter, Radha, and she is in agreement to get her to inpatient rehab today at [facility]. She will go via ambulace. MAR, med list, discharge order faxed to [facility]. Case management will follow and assist as needed. Tori Schmidt DCP- Discharge Planning Updated by [email or web address]: Tori Schmidt on 02/18/19 8:[address] Updated clinical faxed to [facility]. CM will continue to follow and assist with discharge planning/needs. DCP- Discharge Planning Updated by [id number]: Tori Schmidt on 02/17/19 4:[address] Patient Name: DONNA SIMONS Admission Status: Elective Accout number: [id number] Admission Date: 02-16-2019 : 1945 Admission Diagnosis: Attending: ONEYDA MCCARTNEY Current LOS: 1 Anticipated DC Date: 02-17-2019 Planned Disposition: Inpatient Rehab Primary Insurance: MEDICARE A & B Discharge Planning Comments: I met with patient. She is sitting up in the fed feeding herself supper. She is able to answer simple questions. She states it is ok to call her daughter, Radha. I informed her that she may be able to go to [facility] Rehab tomorrow. I spoke with Radha and she would like her mom to go to [facility] for inpatient rehab as previously set up. CM will continue to follow and assist with discharge planning/needs. Cigar Brander: Tori Schmidt DCP- Discharge Planning Updated by [email or web address]: Tori Schmidt on 02/17/19 10:[address] Patient's discharge plan was to go to [facility] inpatient rehab. I spoke with Ethel there and faxed updated clinical. CM will continue to follow and assist with discharge planning/needs. Last DP export: 02/18/19 8:56 Patient Name: DONNA SIMONS Page [id number] at 1218 All edits/amendments must be made on the electronic document DICTATION DATE: 02/18/191217 CLEANING MATRON: JESSIKA 02/18/191217 RPT#: [id number] DC DATE: STATUS: ADM IN [facility] [address] [place] [address] END OF REPORT
[2019-02-18 12:21] VITALS: BP 149/93
--- NOTE | 2019-02-18 13:21 | NUR ---
MILENA IS DISCHARGING TO [facility]. DISCHARGE INSTRUCTIONS GIVEN BOTH VERBALLY AND WRITTEN. ALL QUESTIONS ANSWERED. SON IS HERE AND VERBALIZED UNDERSTANDING OF SAME. NO NEW PRESCRIPTIONS FOR PATIENT. IV TO LEFT FOREARM D/C WITH CATHETER INTACT. WAITING ON AMBULANCE TO D/C. FAMILY IS ASSISTING PATIENT WITH LUNCH.
--- NOTE | 2019-02-18 14:31 | NUR ---
REPORT CALLED TO DANIEL ALSTON RN AT [facility]. ALL QUESTIONS ANSWERED. ALL BELONGINGS WITH PATIENT. TRANSFERRED VIA AMBULANCE.
--- NOTE | 2019-02-18 16:53 | MORECARE ---
CASE MANAGEMENT DISCHARGE SUMMARY PATIENT: DONNA SIMONS UNIT: [id number] ADM DATE: 02/16/19 AGE: 73 : 47 SEX: F ROOM/BED: D.2224 AUTHOR: LONA,DOC PHYSICIAN: REFERRING PHYSICIAN: JOAQUIN MCCARTNEY MD DATE OF SERVICE: 02/18/19 Discharge Plan Patient Name: DONNA SIMONS Facility: [facility]:[place] : 1945 Planned Disposition: Inpatient Rehab Anticipated Discharge Date: 02/17/19 Discharge Date: 02/18/2019 Expected LOS: 1 Initial Reviewer: [email or web address] Initial Review Date: 02/17/2019 Generated: 02/18/19 5:53 pm Comments DCP- Discharge Planning Updated by [id number]: Tori Schmidt on 02/18/19 11:[address] Patient Name: DONNA SIMONS Encounter No: [id number] : 1945 Primary Insurance: MEDICARE A & B Anticipated DC Date: 02-17-2019 Planned Disposition: Inpatient Rehab External Planned Provider: : DCP follow-up note: Patient and family in agreement with discharge plan. No changes to plan. I spoke to her daughter, Radha, and she is in agreement to get her to inpatient rehab today at [facility]. She will go via ambulace. MAR, med list, discharge order faxed to [facility]. Case management will follow and assist as needed. Tori Schmidt DCP- Discharge Planning Updated by [id number]: Tori Schmidt on 02/18/19 8:[address] Updated clinical faxed to [facility]. CM will continue to follow and assist with discharge planning/needs. DCP- Discharge Planning Updated by [email or web address]: Tori Schmidt on 02/17/19 4:[address] Patient Name: DONNA SIMONS Admission Status: Elective Accout number: [id number] Admission Date: 02-16-2019 : 1945 Admission Diagnosis: Attending: ONEYDA MCCARTNEY Current LOS: 1 Anticipated DC Date: 02-17-2019 Planned Disposition: Inpatient Rehab Primary Insurance: MEDICARE A & B Discharge Planning Comments: I met with patient. She is sitting up in the fed feeding herself supper. She is able to answer simple questions. She states it is ok to call her daughter, Radha. I informed her that she may be able to go to [facility] Rehab tomorrow. I spoke with Radha and she would like her mom to go to [facility] for inpatient rehab as previously set up. CM will continue to follow and assist with discharge planning/needs. Straightening Machine Feeder: Tori Schmidt DCP- Discharge Planning Updated by [email or web address]: Tori Schmidt on 02/17/19 10:[address] Patient's discharge plan was to go to [facility] inpatient rehab. I spoke with Ethel there and faxed updated clinical. CM will continue to follow and assist with discharge planning/needs. Last DP export: 02/18/19 11:18 Patient Name: DONNA SIMONS Page [phone] at 1653 All edits/amendments must be made on the electronic document DICTATION DATE: 02/18/191652 ENTRY ENGINEER: JESSIKA 02/18/191652 RPT#: [id number] DC DATE:02/18/19 STATUS: DIS IN [facility] [address] [place] [address] END OF REPORT
== END 2019-02-18 14:32 | DRG 65 ==
LOC: D.MS 10:18
PROVIDERS: Internal Medicine Nephrology; ADMIT Emergency Medicine; ATTEND Emergency Medicine
DX: I63.512 Cerebral infarction due to unspecified occlusion or stenosis of left middle cerebral artery (principal); N39.0 Urinary tract infection, site not specified; E78.5 Hyperlipidemia, unspecified; E03.9 Hypothyroidism, unspecified; G20 Parkinson's disease; F02.80 Dementia in other diseases classified elsewhere, unspecified severity, without behavioral disturbance, psychotic disturbance, mood disturbance, and anxiety; F32.9 Major depressive disorder, single episode, unspecified